=== PATIENT | female | born 1965 | race Caucasian/White ===

== ENCOUNTER → 2023-02-15 11:03 | Outpatient (CLI) | payer OTHER, SELFPAY ==
--- NOTE | ~2023-02-15 | MM_ITS ---
EXAMINATION: MM screening heike BI w florian HISTORY: Screening mammogram TECHNIQUE: Craniocaudal and mediolateral oblique 3-D tomosynthesis images were obtained and synthetic 2-D images were generated. CAD analysis was submitted and interpreted. COMPARISON: No prior mammogram is available for comparison at this institution. BREAST PARENCHYMAL COMPOSITION: There are scattered areas of fibroglandular density. FINDINGS: There is no evidence of suspicious mass, calcification, or architectural distortion to sugg est malignancy in either breast. There has been no suspicious interval change. IMPRESSION: 1. No mammographic evidence of malignancy. 2. Recommend routine screening mammography in one year. BI-RADS Category 1: Negative Reviewed, dictated and finalized at location A.
== END ==
DX: Z12.31 Encounter for screening mammogram for malignant neoplasm of breast (principal)
CPT/HCPCS: 77063; 77067

== ENCOUNTER 2024-07-31 10:46 | Outpatient (CLI) | payer OTHER, SELFPAY ==
--- NOTE | ~2024-07-31 | MM_ITS ---
EXAMINATION: MM screening heike BI w florian HISTORY: Screening mammogram, family history of breast cancer in her sister. TECHNIQUE: Craniocaudal and mediolateral oblique 3-D tomosynthesis images were obtained and synthetic 2-D images were generated. CAD analysis was submitted and interpreted. COMPARISON: 02/15/2023 BREAST PARENCHYMAL COMPOSITION:Not Dense. The breasts are almost entirely fatty FINDINGS: No suspicious mass, calcification, or architectural distortion are identified in either candace ast to suggest malignancy. There has been no suspicious interval change. IMPRESSION: No mammographic evidence of malignancy. Recommend routine screening mammography in one year. BI-RADS Category 1: Negative Reviewed, dictated and finalized at location M. [employer]
== END 2024-07-31 10:47 | disposition home or self-care (01) ==
LOC: MICIMG 10:50
PROVIDERS: PCP Internal Medicine; Visit Provider Internal Medicine
DX: Z12.31 Encounter for screening mammogram for malignant neoplasm of breast (principal)
CPT/HCPCS: 77063; 77067

== ENCOUNTER 2024-11-12 21:58 | Emergency (ER) | payer OTHER, SELFPAY ==
--- NOTE | ~2024-11-12 | XR_ITS ---
3 VIEWS LUMBAR SPINE Ordering provider: Chris Camilo MD History: . fall . Comparison: None. FINDINGS: VERTEBRAL BODIES: No visible fracture or subluxation. Degenerative changes of the spine. DISK SPACES: Degenerative disc disease at the level of L4-L5 and L5-S1. Multilevel facet joint disease. SOFT TISSUES: Normal. IMPRESSION: No acute osseous abnormality lumbar spine. Multilevel degenerative disc disease. Reviewed, dictated and finalized at location A.
--- NOTE | ~2024-11-12 | XR_ITS ---
3 VIEWS THORACIC SPINE Ordering provider: Chris Camilo History: . fall . Comparison: None. FINDINGS: VERTEBRAL BODIES: Normal height and alignment. No visible fracture or subluxation. Degenerative changes of the spine. DISK SPACES: Multilevel narrowing of the disc spaces in the midthoracic area. SOFT TISSUES: Normal. IMPRESSION: No acute osseous abnormality of the thoracic spine. Reviewed, dictated and finalized at location A.
--- NOTE | ~2024-11-12 | XR_ITS ---
XR hand LT min 3V Ordering provider: Chris Camilo MD History: . left thumb injury . Comparison: None. FINDINGS: BONES: No dislocation in the first metacarpophalangeal joint is noted. No definite fracture.. JOINT SPACES: Osteoarthritic changes of the first carpometacarpal joint. SOFT TISSUES: Unremarkable. IMPRESSION: Dislocation of the first carpometacarpal joint. Reviewed, dictated and finalized at location A.
--- NOTE | ~2024-11-12 | XR_ITS ---
EXAMINATION: XR hand LT min 3V DATE: 11/13/2024 05:47 INDICATION: Postreduction first metacarpophalangeal dislocation. TECHNIQUE: Posteroanterior, oblique and lateral views of the left hand were obtained. COMPARISON: None. FINDINGS: Successful reduction to normal alignment of the previously dorsally dislocated first metacarpophalang eal joint. No fracture identified. Severe osteoarthritis at the first carpometacarpal joint. Addition al mild polyarticular osteoarthritis at the distal radioulnar, triscaphe and first metacarpophalangea l and multiple predominantly distal interphalangeal joints. Fiberglas splinting along the radial aspe ct of the hand, wrist and distal forearm. IMPRESSION: 1. Reduction to normal alignment of the previously described first metacarpophalangeal joint. No frac ture. Reviewed, dictated and finalized at location A. IMPRESSION: 1. Reduction to normal alignment of the previously described first metacarpopha langeal joint. No fracture.
--- OUTSIDE RECORDS SUMMARY | 2024-11-12 22:00 | XMS_ITS | Data Portability ---
Author Organization [facility] [place] Address [address] [place] [address] Care Team Providers Care Corporate Quality Manager Name Role Phone DMITRY CARPENTER Primary Care Provider Assessment Encounter Date Assessment Date Assessment LastModified by Organization Details LastModified Time 04/29/2024 04/29/2024 Annual gynecological exam performed. Patient will come back in a year unless there are new symptoms. [email or web address] Not available 04/13/2024 11:31:07 Plan of Treatment Reminders Order Date Submit Date Provider Last Modified By Organization Details Last Modified Time Details Appointments None recorded. Lab pap, IG + HR HPV - HPV regardless but if HPV is positive need subtyping 16,18/45 2023 [facility] (Lab), [address], [place], [address], 4 08:29:00 Referral None recorded. Procedures None recorded. Surgeries None recorded. Imaging None recorded. Medication Orders clotrimazol e-betametha sone 1 %-0.05 % topical cream [facility]23 [facility]24 [id number] [address], [place], [place], [id number], 4 10:19:10 Patient TargetsNo targets recorded. Patient InstructionsNo instructions recorded. Reason for Referral None Reported. Results Created Date Observation Date Name Description Value Unit Range Abnormal Flag Note LastModifiedBy Organization Detail LastModifiedTime 04/29/2004/29/2024 IMAGE GUIDE D PAP AND HPV REGAR DLESS image guided Pap, HPV regardless of Pap result SEE RESULT S BELOW CASE REPOR T: Cytol ogy Gynec ologi ziyad Repor t Case: [id number] Autho kristen hawkins Provi colette: Pedro vu, Galilea , ANP, MAGICIAN HELPER Colle cted: 04/29 1115 Order ing Locat ion: [place] Patho log[facility] Recei zach: 04/30 0310 First Cathleene n: Andrew Packer am, CT Speci men: Yoan toney Pap - Image d, Cervi x STATE MENT OF ADEQU ACY: Satis facto ry for evalu ation Trans forma tion zone compo nent absen t ----- ----- ----- ----- ----- ----- ----- ----- ----- ----- ----- ----- ----- ----- ----- ----- ----- ---- FINAL DIAGN OSIS: Negat eladio for Intra epith elial Lesio ernesto or Demetrius coulter (NIL) . Elect sanjeev gurrola d by Andrew Packer am, CT on 2023 at 7:24 AM ----- ----- ----- ----- ----- ----- ----- ----- ----- ----- ----- ----- ----- ----- ----- ----- ----- ---- HPV RESUL TS: HPV mRNA E6/E7 : No HPV mRNA Detec billy NOTE: This high risk HPV mRNA assay detec ts fourt een high- risk HPV types (16, 18, 31, 33, 35, 39, 45, 51, 52, 56, 58, 59, 66, 68) witho ut diffe renti ation . COMME NT: This speci men was revie wed by a Cytot echno logis t and/o r Patho logis t (as indic ated in this repor t) after evalu ation using the Thinp rep Imagi ng Syste m. CLINI ZIYAD INFOR MATIO N: Menst rual Statu s: LMP (if appli cable ): Clini ziyad Histo ry/Pr eviou s Pap: Type of Neopl marciano (if appli cable ): Signi fican t Clini ziyad Findi ngs: Other Histo ry: Hormo padmini (if appli cable ): PAP EDUCA GRACIELA L NOTE: The Pap Test is a scree feng test with an inher ent false negat eladio rate. Liqui d-bas ed sampl ing may decre ase, but will not elimi rossy, false negat eladio resul ts. A negat eladio resul t does not precl ude the prese nce and/o r devel opmen t of disea se, since the prese nce of abnor mal cells in the sampl e depen ds on the locat ion of the lesio n and sampl ing techn ique. Jacques nued regul ar scree feng is the best metho d of cance r preve ntion . If repor billy cytol ogic findi ng do not corre late with physi ziyad and/o r histo rical findi ngs, furth er inves tigat ion is recom kimani d, as clini lissa joshua nted. Not Available [facility] (Lab) [address], [place], [address], 05/06/2024 08:29:00 Result Notes None recorded. Procedures Surgical History Date Name Laterality Status Provider Name and Address Organization Details Recorded Time 3 Date of Last Mammogram completed [facility] 04/29/2024 10:04:53 1 Date of Last Pap Smear completed [facility] 04/29/2024 10:04:53 4 completed [facility] 04/29/2024 10:04:53 4 Date of Last Colonoscopy completed [facility] 04/29/2024 10:04:53 4 Colonoscopy completed [facility] 04/29/2024 10:04:53 1 Caesarean Section completed [facility] 04/29/2024 10:04:53 Imaging Results None recorded. Procedure Notes None recorded. Medical Equipment None Reported. Allergies Allergen ID Allergen Name Allergen Category Reaction Reaction Severity Criticality Documentation Date Start Date Code Code System Note Provider Name and Address Organization Details Recorded Time 05151 aloe extract food,medi cation rash moderate Not available 04/29/2024 15614 RxNorm [facility] 10:04:53 Medications Name Sig Start Date Stop Date Status Note LastModified by Organization Details LastModified Time cyclobenzapr ine 10 mg tablet TAKE 1 TABLET BY MOUTH EVERY 8 HOURS NEEDED. CUT IN 1/2 IF TOO SEDATING active Not Available Not Available No t Available metoprolol tartrate 100 mg tablet active Not Available Not Available No t Available clotrimazole -betamethaso ne 1 %-0.05 % topical cream APPLY TOPICALLY TO THE AFFECTED AND SURROUNDING AREAS TWICE DAILY IN THE MORNING AND IN THE EVENING FOR 2 WEEKS active Not Available Not Available No t Available ibuprofen 600 mg tablet TAKE 1 TABLET BY MOUTH EVERY 6 HOURS WITH FOOD NEEDED active Not Available Not Available No t Available escitalopram 10 mg tablet active Not Available Not Available Not Available Vitals Date Recorded Body height Body mass index (BMI) Body weight Systolic blood pressure Diastolic blood pressure Provider Name and Address Organization Details Last Updated DateTime 04/29/2024 167.64 cm 34.7 kg/m2 66776.64 g 124 mm[Hg] 86 mm[Hg] [facility] 10:04:24 Social History Question Answer Notes LastModified by Organizat ion Details LastModified Time Do You Have An Advance Directive? Yes [email or web address] Information n ot available 04/29/2024 Are You Blind Or Do You Have Difficulty Seeing? No [email or web address] Information n ot available 04/29/2024 What Is Your Level Of Caffeine Consumption? Occasional [email or web address] Information not available 04/29/2024 How Much Tobacco Do You Chew? None [email or web address] Information not available 04/29/2024 In The 14 Days Before Symptom Onset, Have You Had Close Contact With A Laboratory-confirm ed COVID-19 While That Case Was Ill? No Information n ot available 04/29/2024 In The 14 Days Before Symptom Onset, Have You Had Close Contact With A Person Who Is Under Investigation For COVID-19 While That Person Was Ill? No [email or web address] Information not available 04/29/2024 Have You Been To An Area Known To Be High Risk For COVID-19? No Information not available 04/29/2024 Are You Deaf Or Do You Have Serious Difficulty Hearing? No [email or web address] Information not available 04/29/2024 What Type Of Diet Are You Following? REGULAR [email or web address] Information n ot available 04/29/2024 What Is The Highest Grade Or Level Of School You Have Completed Or The Highest Degree You Have Received? NH97131-0 [email or web address] Information not available 04/29/2024 Are There Any Guns Present In Your Home? No [email or web address] Information not available 04/29/2024 Do You Use Protection During Sex? No [email or web address] Information not available 04/29/2024 Do You Use Your Seat Belt Or Car Seat Routinely? Yes [email or web address] Information not available 04/29/2024 Do You Have Smoke And Carbon Monoxide Detectors In Your Home? Yes [email or web address] Information not available 04/29/2024 How Much Tobacco Do You Smoke? No [email or web address] Information not available 04/29/2024 Do You Use Sunscreen Routinely? No Information not available 04/29/2024 Have You Used IV Drugs? No [email or web address] Information not available 04/29/2024 Do You Have Difficulty Walking Or Climbing Stairs? No [email or web address] Information not available 04/29/2024 Sex: Unknown Functional Status Question Answer Note LastModified by Organizat ion Details LastModified Time Do you use any illicit or recreational drugs? No [email or web address] Information not available 04/29/2024 What is your level of alcohol consumption? Occasional [email or web address] Information not available 04/29/2024 Are you able to walk? YESWOREST [email or web address] Information not available 04/29/2024 Are you able to care for yourself? 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 No [email or web address] Information not available 04/29/2024 What is your exercise level? Occasional [email or web address] Information not available 04/29/2024 Mental Status Question Answer Note LastModified by Organization D etails LastModified Time Do you feel stressed (tense, restless, nervous, or anxious, or unable to sleep at night)? [id number] [email or web address] Information not available 04/29/2024 Family History Relationship Description Onset Age of this Age Resolved Age Notes LastModified by Organization Details LastModified Time Sister Malignant tumor of breast Not available 2023 10:04:53 Sister Non-Hodgkin' s lymphoma (clinical) [email or web address] Not available 04/29 10:07:23 Son Leukemia [email or web address] Not availabl e 04/29/2024 10:07:11 Medical History Condition Response Drug/Latex Allergies/Reactions Y Arthritis Y Hypertension Y Gynecological History Statement/Question Response Abnormal Pap N Date of Last Mammogram 02/15/2023 On BCP's at Conception? N N Was last menstrual period normal N STIs/STDs N HPV Vaccine N Age at First Child 36 If Post Menopausal, Age at Menopause 47 Date of Last Colonoscopy 01/28/2014 Sexually Active? N Age of first menstrual cycle 12 Date of Last Pap Smear 07/21/2020 Sexual Problems? Y LMP Unknown 01/28/2014 N Obstetrics History GPAL:G 1 P 1 0 0 1 Type Value Full Term 1 Living 1 Total 1 Past Encounters Encounter ID Performer Location Encounter Start Date Encounter Closed Date Diagnosis/Indication Diagnosis SNOMED-CT Code Diagnosis ICD10 Code Diagnosis Note [id number] Dajuan Marshall MD [place] [address] [address] 04/29/2024 09:54:49 04/29/2024 10:45:56 Gynecologic examination 71768633 Z01.419 Annual gynecologi ziyad exam performed. Patient will come back in a year unless there are new symptoms. Suggest Calcium with Vitamin D if not eating in diet. Patient advised to get annual flu shot. Recommend yearly physicals and perform monthly breast exams. Genetic testing is available for patients with family history of cancer. Engage in safe sexual practices, use condoms. Encouraged to have daily exercise. Avoid tobacco and illicit drugs, moderation of alcohol. If BMI greater than 25 dietary consult advised. If you have any questions please call or email. mammogram- pt has scheduled at [facility] in Jul 2024 colon cancer screening - DUE - PCP orders DEXA scan- n/a Pap smear- pap w/ HPV collected laboratory evaluation - PCP STI testing - declined Candidiasis of skin 4988 3006 B37.2 Pt requests refill of antifungal cream for intermitte nt yeast infection/ irritation of inner thigh/groi n.Rx sent with 1 refill.Rec ommended wearing cotton underwear, changing out of any moist clothing immediatel y. Dyspareunia [id number] N94 .10 Recommende d coconut or olive oil for lubricatio n during intercours e.Discusse d vaginal estrogen cream to help improve vaginal dryness/at rophy. Risks/bene fits reviewed. Pt to consider, but declined at this time. Health Concerns Section Related Observation LastModified by Organization Detai ls LastModified Time None Recorded Concern Status LastModified by Organization Details LastModified Time None Recorded Advance Directives Directive Y: Payers Encounter Date Sequence Insurance Name Policy Number Policy Lu Covered Member ID Lu Member ID Guarantor Name 04/29/2024 1 [facility] [id number] Peri Gamez [id number] Peri Gamez Notes Date Note Type Note Provider Name and Address Organization Details Recorded Time 04/29/2024 text/html Annual GYNReport ed bypatient.Urinary symptoms:No hematuria; No incontinence Vulva:No genital lesion Vagina:Normal vaginal discharge Breast:No breast pain; No breast lump; No nipple discharge Sexual complaints:No sexual complaints; Normal libido;Pain during intercourse Menopausal Symptoms:No menopausal symptoms;Inadequac y of lubrication of vaginal mucosa Psychological symptoms:No depression; No anxiety; No PMDD Preventive measures:Encourage self breast examination; Encourage regular exercise; Encourage no tobacco use; Encourage regular mammograms starting age 40; Needs to schedule mammogram; Needs to schedule colonoscopy New patient presents to establish care.Post-menopaus al. Patient reports dyspareunia d/t dryness.Patient's sister had hx of breast cancer, pt reports that she is BRCA negative. GALILEA MCKINNON, MERCHANDISE SHOPPER [address], [place], [address], [place] [facility] 04/29/2024 11:31:27 OBGyn Episode Ob Episode Information Episode Created Date Number of Fetuses Patient Bloodtype Patient rh Status Prepregnancy Weight lbs Domestic Partner Domestic Partner Phone Father Name Transferrer Status 04/29/20 24 1 CLOSED Fetus Data First Name Last Name Admitted to NICU Weight (g) Sex Living Outcome Pediatric Complications Fetus ID Race Codes Race Delivery Type 4223.84 [id number] M Full Term [id number] Ron Calculation Initial Ron Date Initial Exam Date Initial Exam Provider Initial Ultrasound Date Last Menstrual Period Date Ultra Sound Weeks Gestation 0 Eighteen To Twenty Week Ron Update Ultra Sound Date Fundal Height At Umbil Quickening Date Ultra Sound Latest Weeks Gestation Final Ron Confirmed By Final Ron Confirmed Date Final Ron Date Ultra Sound Latest Days Gestation 0 0 Menstrual History Last Menstrual Date Menses Monthly On Bcp Conception Prior Menses Frequency Hcg Plus Date Menarche Onset Age Delivery Information Delivery Date Delivery Type Labor Anesthesia Weeks Gestation Incision Type Labor Labor Length Hrs Delivered By Post Complications Tubal Sterilization Discharge Date Comments 2 Discharge Information Feeding Method Contraceptive Method Maternal HG B and HCT Levels
--- OUTSIDE RECORDS SUMMARY | 2024-11-12 22:00 | XMS_ITS | Referral Summary ---
Author Organization [facility] Address [address] [place] [phone] Care Team Providers Care Pack Worker Supervisor Name Role Phone Westley Ramirez MD Primary Care Provider + Encounters Date Type Department Care Team Description 08/27/2024 10:26 AM PHYSICIAN RELATIONS REPRESENTATIVE Anesthesia Event [facility] [address] [place] [phone] Todd Rivera DO 08/27/2024 10:30 AM PHYSICIAN RELATIONS REPRESENTATIVE - 08/27/2024 11:00 AM PHYSICIAN RELATIONS REPRESENTATIVE Surgery [facility] [address] [place] [phone] Troy Beauchamp MD COLON REMOVAL SNARE 08/27/2024 9:43 AM PHYSICIAN RELATIONS REPRESENTATIVE - 08/27/2024 11:27 AM PHYSICIAN RELATIONS REPRESENTATIVE Hospital Encounter [facility] [address] [place] [phone] Troy Beauchamp MD Screen for colon cancer Discharge Disposition: Discharge to home or self care from Last 3 Months Allergies Active Allergy Reactions Criticality Noted Date Comments Aloe Vera Itching,Rash Medium 07/21/2020 Aloe Vera-Dimethicone Hives Medium 01/27/2020 Ampicillin Hives High 05/07/2015 Codeine Dizziness Low 01/16/2017 Penicillins Hives Medium 01/16/2017 Medications ibuprofen 200 mg tab/cap Take 4 tablet/capsule (800 mg total) by mouth every 6 (six) hours as needed for pain Active semaglutide (WEGOVY) 0.25 mg/0.5 mL auto-injector Inject 0.5 mL (0.25 mg total) under the skin every 7 days 2 mL 4 Active Additional Information Patient not taking.Reported on 08/27/2024 metoprolol (LOPRESSOR) 100 mg tablet TAKE 1 TABLET BY MOUTH DAILY 100 tablet 1 5 Active escitalopram (LEXAPRO) 10 mg tablet TAKE 1 TABLET BY MOUTH DAILY 100 tablet 1 5 Active scopolamine 1 mg over 3 days patch [address] 1 patch on the skin every third day as needed (nausea) 2 patch 5 10/25/19 25 Active Problems Problem Noted Date Diagnosed Date Moderate episode of recurrent major depressive d isorder 05/14/2024 Screen for colon cancer 05/14/2024 Anxiety 04/20/2018 Family history of breast cancer in sister 2015 History of recurrent UTI (urinary tract infectio n) 02/01/2013 Overview (01/21/2017): Overview: No significant cystocoele Essential hypertension, benign 10/01/2010 Anovulatory 04/03/2009 Depression 11/29/2008 Overview (01/21/2017): Overview: Son 2006 at age 5 of leukemia Resolved Problems Problem Noted Date Diagnosed Date Resolved Date BMI 33.0-33.9,adult 09/10/2018 05/14/20 24 Body mass index (BMI) of 32. 0 to 32.9 in adult 02/27/2017 05/14/2024 Obesity 11/29/2008 05/14/2024 Immunizations Immunization Administration Dates Next Due Influenza, Unspecified 07/18/2022(Deferr ed: Patient Refused),04/30/2020,03/30/2018(Deferred : Patient decision) Pfizer SARS-CoV-2 Monovalent Vaccination (12+ Yrs) PURPLE 10/14/2020,09/23/2020 Tdap 05/14/2024,01/03/2014 Social History Tobacco Use Types Packs/Day Years Used Date Smoking Tobacco: Never Smokeless Tobacco: Never Tobacco Cessation:Counseling Given: Not Answered Alcohol Use Standard Drinks/Week Comments Yes 0 (1 standard drink = 0.6 oz pur e alcohol) occassionally AUDIT-C Answer Date Recorded Q1: How often do you have a drink containing alc ohol? 2-4 times a month 08/27/2024 Q2: How many drinks containi ng alcohol do you have on a typical day when you are drinking? 1 or 2 08/27/2024 Q3: How often do you have si x or more drinks on one occasion? Never 08/27/2024 PHQ-2 Answer Date Recorded PHQ-2 Total Score 0 05/14/2024 Personal Safety Answer Date Recorded Have you ever been in or are you currently in a harmful physical or emotional relationship or is someone making you feel afraid or unsafe? 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 Not on file Not on file Not on file Last Filed Vital Signs Vital Sign Reading Time Taken Comments Blood Pressure 126/81 08/27/2024 11:21 AM PHYSICIAN RELATIONS REPRESENTATIVE Pulse 57 08/27/2024 11:21 AM PHYSICIAN RELATIONS REPRESENTATIVE Temperature 37 C (98.6 F) 08/27/2024 10:09 AM PHYSICIAN RELATIONS REPRESENTATIVE Respiratory Rate 15 08/27/2024 11:21 AM PHYSICIAN RELATIONS REPRESENTATIVE Oxygen Saturation 100% 08/27/2024 11:21 AM PHYSICIAN RELATIONS REPRESENTATIVE Inhaled Oxygen Concentration - - Weight 99.3 kg (219 lb) 08/27/2024 10:09 AM PHYSICIAN RELATIONS REPRESENTATIVE Height 166 cm (5' 5.35 ) 08/27/2024 10:09 AM PHYSICIAN RELATIONS REPRESENTATIVE Body Mass Index 36.05 08/27/2024 10:09 AM PHYSICIAN RELATIONS REPRESENTATIVE Plan of Treatment Not on file Procedures Procedure Name Priority Date/Time Associated Diagnosis Comments SURGICAL PATHOLOGY Routine 08/27/2024 10 :37 AM PHYSICIAN RELATIONS REPRESENTATIVE Screen for colon cancer COLON REMOVAL SNARE Open Access 08/27/2024 1 0:26 AM PHYSICIAN RELATIONS REPRESENTATIVE Screen for colon cancer COLONOSCOPY 08/27/2024 9:36 AM PHYSICIAN RELATIONS REPRESENTATIVE SCREENING MAMMOGRAM 2D BILATERAL Schedule Routine, Read Routine (OP Routine) 08/02/2024 7:31 AM PHYSICIAN RELATIONS REPRESENTATIVE HEPATITIS C ANTIBODY Routine 09/10/2018 3:13 PM CDT Encounter for hepatitis C screening test for low risk patient from Last 3 Months or Most Recently Relevant to Health Maintenance Results * Surgical pathology (08/27/2024 10:37 AM PHYSICIAN RELATIONS REPRESENTATIVE) Tissue specimen (specimen) (Polyp(s), colon/colorectal, esophageal, gastric) 08/27/2024 10:37 AM PHYSICIAN RELATIONS REPRESENTATIVE Tissue specimen (specimen) (Polyp(s), colon/colorectal, esophageal, gastric) 08/27/2024 10:46 AM PHYSICIAN RELATIONS REPRESENTATIVE Narrative PATHOLOGY [facility] - 08/30/2024 9:21 AM PHYSICIAN RELATIONS REPRESENTATIVE [address] [address] Tele: Shannan Copeland MD - Clinical Project Assistant Note to Patients: This report may contain a detailed description of human tissue sent by a health care provider to the laboratory for pathologic evaluation. The content of this report is essential for diagnosis and may provide important critical findings. This information may be unfamiliar to patients to review without a medical professional present. It is advised that the patient review this report in the presence of a health care provider who can answer questions and explain the details. SURGICAL PATHOLOGY REPORT Patient Name: RUSS MAHARAJ Address: [address] [place] [address] Gender: F : 1965 (Age: 59) Service: Gastro Location: [facility], Hospital #: [id number] Patient Type: [facility] Taken: 08/27/2024 Received 08/27/2024 Reported: 08/30/2024 Physician(s): Sandra Lopez M.D. DIAGNOSIS: Colon, transverse, polypectomy: - Tubular adenoma; negative for high-grade dysplasia or malignancy Colon, sigmoid, polypectomy: - Tubular adenoma; negative for high-grade dysplasia or malignancy [facility]/08/30/2024 09:21 Examining Pathologist: Oleg Stokes M.D. Report Reviewed and Electronically Signed By Oleg Stokes M.D. SPECIMEN TYPE: A: TRANSVERSE POLYP B: SIGMOID POLYP CLINICAL IMPRESSION AND HISTORY: Screening for colorectal malignant neoplasm. Last colonoscopy 2013. Last colonoscopy date unknown. Findings include 6 mm polyp in the sigmoid colon, 7 mm polyp in transverse colon. GROSS DESCRIPTION: The tissue is received in two containers of formalin all labeled with the patient's name RUSS MAHARAJ. A. The first container is additionally labeled transverse polyp and contains multiple tissue fragments measuring 1.1 x 0.3 x 0.1 cm in aggregate. Due to the color and size of the specimen, eosin is used. The specimen is filtered and submitted entirely in cassette A1. B. The second container is additionally labeled sigmoid polyp and contains a 1 x 0.3 x 0.1 cm tissue fragment admixed with debris. Due to the color and size of the specimen, eosin is used. The specimen is filtered and submitted entirely in cassette B1. [facility]/08/27/2024 16:39 [facility] MICROSCOPIC DESCRIPTION: Sections of the transverse polyp are multiple polypoid mucosal fragments with patchy tubular adenoma features without high-grade dysplasia or malignancy. Sections from the sigmoid polyp show polypoid mucosa with tubular adenoma features, without high-grade dysplasia or evidence of malignancy. Clerical Data Follows A; 26123 B; [id number] REPORT IMAGES AND/OR SCANNED DOCUMENTS ONLY VIEWABLE IN PDF FORMAT The immunohistochemical test(s) cited in this report, if any, was developed and its performance characteristics determined by [facility]. It has not been cleared or approved by the U.S. Food and Drug Administration. The FDA has determined that such clearance or approval is not necessary. This test is used for clinical purposes. It should not be regarded as investigational or for research. [facility] is certified under the Clinical Laboratory Improvement Amendments of 1988 (CLIA) as qualified to perform high complexity testing. Immunostains were performed on formalin-fixed paraffin embedded tissue using a polymer diaminobenzidine chromogen detection system. Antibodies used may include clone SP1 (rabbit monoclonal, estrogen receptor), clone 1E2 (rabbit monoclonal progesterone receptor), Ki-67 (rabbit monoclonal, 30-9), CD117 (rabbit polyclonal, c-kit), and anti-Her-2/luiza (4B5) (rabbit monoclonal primary antibody). In the event that immunohistochemistry or special stains have been performed, attending physician has confirmed appropriateness of controls. Frozen section, operating room consultation, gross examination and dissection, and case sign out may have been performed in part or completely in the following laboratories: [facility], [address] [facility], [place], [place] [address] [place] [address], [address] [place] [id number]. us Troy Beauchamp MD LAB PATHOLOGY ORDERABLES Ginger higgins Result PATHOLOGY [facility] Laboratory Receiving [address] [place] [address] * Colonoscopy (08/27/2024 9:36 AM PHYSICIAN RELATIONS REPRESENTATIVE) Anatomical Region Laterality Modality Other Narrative Procedure Note Troy Beauchamp MD - 08/27/2024 9:36 AM CST ENDOSCOPY LAB Patient Name: Russ Maharaj Procedure Date: 08/27/2024 9:36 AM Admit Type: Outpatient Room: [facility] 3 Date of : 1965 Instrument Name: [id number] Gender: Female Note Status: Finalized Procedure: Colonoscopy Indications: Screening for colorectal malignant neoplasm, Last colonoscopy: 2013, Last colonoscopy: date unknown (unable to locate last colonoscopy report) Providers: Troy Beauchamp M.D. Referring MD: Westley Ramirez M.D. Medicines: Propofol per Anesthesia Complications: No immediate complications. Estimated blood loss:None. Estimated Blood Loss: Estimated blood loss: none. Procedure: Pre-Anesthesia Assessment: - The risks and benefits of the procedure and the sedation options and risks were discussed with the patient. All questions were answered and informed consent was obtained. The benefits, risks and alternatives of theprocedure and sedation were discussed and informed consentwas obtained. All questions were answered. Please referto the signed informed consent document in the medical record. The scope was passed under direct vision.The Colonoscope was introduced through the anus and advanced to the the cecum, identified byappendiceal orifice and ileocecal valve. The colonoscopy was performed without difficulty. The patient tolerated the procedure well. The quality of the bowel preparation was evaluated using the BBPS (BostonBowel Preparation Scale) with scores of: Right Colon = 3 (entire mucosa seen well with no residual staining, small fragments of stool or opaque liquid),Transverse Colon = 3 (entire mucosa seen well with no residual staining, small fragments of stool or opaqueliquid) and Left Colon = 3 (entire mucosa seen well with no residual staining, small fragments of stool oropaque liquid). The total BBPS score equals 9. The qualityof the bowel preparation was excellent. The bowel preparation used was Plenvu via split dose instruction. Bowel prep was administered using asplit dose. AI Technology was utilized during theprocedure to aid in polyp detection. Findings: A 6 mm polyp was found in the sigmoid colon. The polyp was sessile.The polyp was removed with a cold snare. Resection and retrieval were complete. Estimated blood loss: none. A 7 mm polyp was found in the transverse colon. The polyp wassessile. The polyp was removed with a cold snare. Resection and retrieval were complete. Estimated blood loss: none. The retroflexed view of the distal rectum and anal verge was normaland showed no anal or rectal abnormalities. Impression: - One 6 mm polyp in the sigmoid colon, removed witha cold snare. Resected and retrieved. - One 7 mm polyp in the transverse colon, removedwith a cold snare. Resected and retrieved. Recommendation: - Await pathology results. - Repeat colonoscopy in 5 years for surveillance of multiple adenomas. Electronically Signed by Troy Beauchamp M.D. Troy Beauchamp M.D. 08/27/2024 10:49:53 AM Number of Addenda: 0 Note Initiated On: 08/27/2024 9:36 AM Scope Withdrawal Time: 0 hours 7 minutes 24 seconds Scope In: 10:33:36 AM Scope Out: 10:48:42 AM Troy Beauchamp MD ENDOSCOPY PROCEDURES Final Re sult * Screening Mammogram 2D Bilateral (08/02/2024 7:31 AM PHYSICIAN RELATIONS REPRESENTATIVE) SCRIBED BI-RADS 1 Anatomical Region Laterality Modality Breast Bilateral Mammography Historical Provider IMG MAMMO PROCEDURES Ginger l Result * Hepatitis C antibody (09/10/2018 3:13 PM CDT) Hep C Ab Non-Reactiv e Non-Reactiv e [facility] Blood specimen (specimen) 09/10/2018 3:13 PM CDT 09/10/2018 5:49 PM CDT Narrative [facility] - 09/10/2018 7:16 PM CDT Westley Ramirez MD LAB MICROBIOLOGY - GENER AL ORDERABLES Final Result [facility] [address] [place] [address] from Last 3 Months or Most Recently Relevant to Health Maintenance Insurance [facility] CHOICE PLUS Advance Directives For more information, please contact: [phone] * Full Code (Latest Code Status on File) Date Activated Date Inactivated Comments 08/27/2024 9:58 AM 08/27/2024 3:37 PM Care Teams Pack Worker Supervisor Relationship Specialty Start Date End Date Westley Ramirez MD [address] [address] PCP - General 11/14/16
--- OUTSIDE RECORDS SUMMARY | 2024-11-12 22:00 | XMS_ITS | Clinical Summary ---
Author Organization [facility] Address [address] [place] [address] Care Team Providers Care Delphi Developer Name Role Phone Westley Ramirez MD Primary Care Provider + Allergies Active Allergy Reactions Criticality Noted Date [...] as needed (nausea) 2 patch 5 10/25/19 Active Problems Problem Noted Date Diagnosed Date [...] in adult 02/27/2017 05/14/2024 Obesity 11/29/2008 05/14/2024 Encounters Date Type Department Care Team Description 08/27/2024 10:30 AM ECLECTIC DOCTOR - 08/27/2024 11:00 AM ECLECTIC DOCTOR Surgery [facility] [address] [place] [phone] Troy Beauchamp MD COLON REMOVAL SNARE 08/27/2024 10:26 AM ECLECTIC DOCTOR Anesthesia Event [facility] [address] [place] [phone] Todd Rivera DO 08/27/2024 9:43 AM ECLECTIC DOCTOR - 08/27/2024 11:27 AM ECLECTIC DOCTOR Hospital Encounter [facility] [address] [place] [phone] Troy Beauchamp MD Screen for colon cancer Discharge Disposition: Discharge to home or self care from Last 3 Months Immunizations Immunization Administration Dates Next Due Influenza, Unspecified 07/18/2022(Deferr ed: Patient Refused),04/30/2020,03/30/2018(Deferred : Patient decision) Pfizer SARS-CoV-2 Monovalent Vaccination (12+ Yrs) PURPLE 10/14/2020,09/23/2020 Tdap 05/14/2024,01/03/2014 Surgical History Surgery Date Site/Laterality Comments KNEE ARTHROSCOPY Left CYST REMOVAL 06/30/2021 - 06/29/2022 on neck Medical History Medical History Date Comments Depression Depression Hypertension Hypertension Anxiety Family History Medical History Relation Name Comments Cardiomyopathy Brother Diabetes type II Father Hypertension Father Hypertension; Diabetes type II Mother Diabetes me llitus type 2; Hypertension Mother Hypertension; Arthritis Other Blood Clot Other Breast cancer Sister Cancer, breast ; Lymphoma Sister Relation Name Status Comments Brother Alive Father Mother Other Sister Alive Social History Tobacco Use Types Packs/Day Years [...] Sex Assigned at Female 09/03/2018 4:39 PM ECLECTIC DOCTOR Legal Sex Female 4:02 AM ECLECTIC DOCTOR Gender Identity Female 09/03/2018 4:39 PM ECLECTIC DOCTOR Sexual Orientation Straight 09/03/2018 4: 39 PM ECLECTIC DOCTOR 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 Not on file Not on file Obstetrics History Last Filed Vital Signs Vital Sign Reading Time Taken Comments Blood Pressure 126/81 08/27/2024 11:21 AM ECLECTIC DOCTOR Pulse 57 08/27/2024 11:21 AM ECLECTIC DOCTOR Temperature 37 C (98.6 F) 08/27/2024 10:09 AM ECLECTIC DOCTOR Respiratory Rate 15 08/27/2024 11:21 AM ECLECTIC DOCTOR Oxygen Saturation 100% 08/27/2024 11:21 AM ECLECTIC DOCTOR Inhaled Oxygen Concentration - - Weight 99.3 kg (219 lb) 08/27/2024 10:09 AM ECLECTIC DOCTOR Height 166 cm (5' 5.35 ) 08/27/2024 10:09 AM ECLECTIC DOCTOR Body Mass Index 36.05 08/27/2024 10:09 AM ECLECTIC DOCTOR Plan of Treatment Health Maintenance Due Date Last Done Comments Cervical Cancer Screening 1965 Covid-19 Vaccine ( season) 2024 05/12/2021, 10/14/2020, 09/23/2020 Zoster Vaccine (2 of 2) 10/02/2024 08/07/2024 Depression Screening 05/14/2025 05/14/2024, 07/18/2022, 01/27/2020, Additional history exists Regular Well Visit/Exam 18-64 05/14/2025 05/14/2024, 07/18/2022, 01/27/2020, Additional history exists Breast Cancer Screening-Mammogram 08/02/2025 08/02/2024, 02/15/2023, 02/15/2023, Additional history exists DTaP/Tdap/Td Vaccine (3 - Td or Tdap) 05/14/2034 05/14/2024, 01/03/2014 Colon Cancer Screening-Colonoscopy 08/27/2034 08/27/2024, 01/28/2014 Hepatitis C Screening Completed 09/10/2018 Influenza Vaccine Discontinued 04/30/2020 Hepatitis B Screening Completed 05/14/2024 Colon Cancer Screening-CT Colonography Discontinued 08/27/2024, 01/28/2014 Colon Cancer Screening-DNA Stool Discontinued 08/27/2024, 01/28/2014 Colon Cancer Screening-FIT Discontinued 08/27/2024, Colon Cancer Screening-Sigmoidoscopy Discontinued 08/27/2024, 01/28/2014 Pneumococcal vaccine <65 Aged Out No longer eligible based on patient's age to complete this topic Procedures Procedure Name Priority Date/Time Associated Diagnosis Comments SURGICAL PATHOLOGY Routine 08/27/2024 10 :37 AM ECLECTIC DOCTOR Screen for colon cancer COLON REMOVAL SNARE Open Access 08/27/2024 1 0:26 AM ECLECTIC DOCTOR Screen for colon cancer COLONOSCOPY 08/27/2024 9:36 AM ECLECTIC DOCTOR SCREENING MAMMOGRAM 2D BILATERAL Schedule Routine, Read Routine (OP Routine) 08/02/2024 7:31 AM ECLECTIC DOCTOR HEPATITIS C ANTIBODY Routine 09/10/2018 3:13 PM CDT Encounter for hepatitis C screening test for low risk patient from Last 3 Months or Most Recently Relevant to Health Maintenance Results * Surgical pathology (08/27/2024 10:37 AM ECLECTIC DOCTOR) Tissue specimen (specimen) (Polyp(s), colon/colorectal, esophageal, gastric) 08/27/2024 10:37 AM ECLECTIC DOCTOR Tissue specimen (specimen) (Polyp(s), colon/colorectal, esophageal, gastric) 08/27/2024 10:46 AM ECLECTIC DOCTOR Narrative PATHOLOGY [facility] - 08/30/2024 9:21 AM ECLECTIC DOCTOR [address] [address] Tele: Shannan Copeland MD - Meat Wrapper Note to Patients: This report may contain [...] PATHOLOGY REPORT Patient Name: RUSS MAHARAJ Address: [address] [place] [address] Gender: F : 1965 (Age: 59) Service: Gastro Location: [facility], Hospital #: [id number] Patient Type: [facility] [place] [facility] Taken: 08/27/2024 Received 08/27/2024 Reported: 08/30/2024 Physician(s): Sandra Lopez M.D. DIAGNOSIS: Colon, transverse, polypectomy: - Tubular adenoma; negative for high-grade dysplasia or malignancy Colon, sigmoid, polypectomy: - Tubular adenoma; negative for high-grade dysplasia or malignancy 08/30/2024 09:21 Examining Pathologist: Oleg Stokes M.D. Report [...] filtered and submitted entirely in cassette B1. [facility]/08/27/2024 16:39 [facility] MICROSCOPIC DESCRIPTION: Sections of the transverse polyp are multiple polypoid mucosal fragments with patchy tubular adenoma features without high-grade dysplasia or malignancy. Sections from the sigmoid polyp show polypoid mucosa with tubular adenoma features, without high-grade dysplasia or evidence of malignancy. Clerical Data Follows A; 24500 B; [id number] REPORT IMAGES AND/OR SCANNED DOCUMENTS ONLY VIEWABLE IN PDF FORMAT The immunohistochemical test(s) cited in this report, if any, was developed and its performance characteristics determined by [facility]. It has not been cleared or approved by the U.S. Food and Drug Administration. The FDA has determined that such clearance or approval is not necessary. This test is used for clinical purposes. It should not be regarded as investigational or for research. [facility] is certified under the Clinical Laboratory [...] part or completely in the following laboratories: [facility], [facility][note 3]5 [facility], [place], [place] [address] [place] [address], 10 [facility], [place] [address]. us Troy Beauchamp MD LAB PATHOLOGY ORDERABLES Ginger higgins Result PATHOLOGY [facility] Laboratory Receiving [address] [place] [address] * Colonoscopy (08/27/2024 9:36 AM ECLECTIC DOCTOR) Anatomical Region Laterality Modality Other Narrative Procedure Note Troy Beauchamp MD - 08/27/2024 9:36 AM CST ENDOSCOPY LAB Patient Name: Russ Maharaj Procedure Date: 08/27/2024 9:36 AM Admit Type: Outpatient Room: [facility] Date of : 1965 Instrument Name: [id number] [...] Screening Mammogram 2D Bilateral (08/02/2024 7:31 AM ECLECTIC DOCTOR) SCRIBED BI-RADS 1 Anatomical Region Laterality Modality Breast Bilateral Mammography Historical Provider IMG MAMMO PROCEDURES Ginger l Result * Hepatitis C antibody (09/10/2018 3:13 PM CDT) Hep C Ab Non-Reactiv e Non-Reactiv e [facility] Blood specimen (specimen) 09/10/2018 3:13 PM CDT 09/10/2018 5:49 PM CDT Narrative [facility] - 09/10/2018 7:16 PM CDT Westley Ramirez MD LAB MICROBIOLOGY - GENER AL ORDERABLES Final Result [facility] [address] Department of [place] [address] from Last 3 Months or Most Recently Relevant to Health Maintenance Insurance [facility] CHOICE PLUS Advance Directives For more information, please contact: [phone] * Full Code (Latest Code Status on File) Date Activated Date Inactivated Comments 08/27/2024 9:58 AM 08/27/2024 3:37 PM Care Teams Delphi Developer Relationship Specialty Start Date End Date Westley Ramirez MD [address] [address] PCP - General 11/14/16
--- OUTSIDE RECORDS SUMMARY | 2024-11-12 22:00 | XMS_ITS | Clinical Summary ---
Author Organization [facility] Address [address] [place] [address] Care Team Providers Care Rn Radiology Name Role Phone Westley Ramirez MD Primary Care Provider [phone] Ashlie Boyle MD Unavailable [phone] Source Comments [facility],non-owned Affiliates and Associated Physician Practices is amultiple site organization consisting of ambulatory clinics and hospital sitesin [place], [place], [place] and [place]. This disclosure is being madepursuant to the Care Everywhere program and may not contain all information available regarding this patient. Last updated 18.[facility] Allergies Active Allergy Reactions Criticality Noted Date Comments Aloe Vera Itching,Rash Medium 07/21/2020 Ampicillin 11/29/2008 Rash Codeine 11/29/2008 dizzy Penicillins Unknown 04/23/2017 Medications * Be aware that medications may not be up to date on this document. Alwaysverify current medications with the patient. metoprolol tartrate (LOPRESSOR) 100 MG tabletIndication s:Hypertension Take 50 mg by mouth 2 times daily Reasons: High Blood Pressure Active Phenylephrine HCl (WAL-PHED PE PO) Take 1 Cap by mouth once daily Active Aspirin-Acetamin ophen-Caffeine (EXCEDRIN PO) Take 1 Cap by mouth once daily Active omeprazole (PRILOSEC) 40 MG capsuleIndicatio ns:Gastroesophag eal reflux disease without esophagitis TAKE 1 CAPSULE BY MOUTH TWICE DAILY BEFORE BREAKFAST AND SUPPER 60 capsule 8 Active escitalopram (LEXAPRO) 10 MG tablet 9 Active Multiple Vitamins-Mineral s (ICAPS AREDS 2 PO) Active clotrimazole-bet amethasone (Lotrisone) 1-0.05 % cream Apply to affected area 2 times daily 15 g 3 Active Active Problems Problem Noted Date Diagnosed Date Breast cancer screening, high risk patient 09/08 Overview (09/09/2018): Has seen Dr. Robbins. Lifetime risk = 39.5% Dense breast tissue on mammogram 09/08/2018 Family history of breast cancer in sister 2015 History of recurrent UTI (urinary tract infectio n) 02/01/2013 Overview (02/01/2013): No significant cystocoele Essential hypertension, benign 10/01/2010 Depression 11/29/2008 Overview (03/21/2009): Son 2006 at age 5 of leukemia Obesity (BMI: 31.28) 11/29/2008 Resolved Problems Problem Noted Date Diagnosed Date Resolved Date Anovulatory 04/03/2009 10/02/2022 Encounter for health-related screening 11/29/2008 10/02/2022 Overview (09/27/2017): Last PAP 02/01/13: normal Last MAMM 01/23/13: normal IMO update 09 28 2017 Immunizations Immunization Administration Dates Next Due INFLUENZA VACCINE 04/30/2020 TDAP (7yrs+) 01/03/2014 Family History Medical History Relation Name Comments Hypertension Father Cancer - Breast Maternal Grandmother Diabetes Mother Hypertension Mother Cancer - Breast Sister bilat, BRCA negative, recurrent at 61 Lymphoma Sister Leukemia Son Osteoporosis Neg Hx Relation Name Status Comments Brother Alive Father Maternal Grandmother Mother Sister Alive Son Leukemia Social History Tobacco Use Types Packs/Day Years Used Date Smoking Tobacco: Never Smokeless Tobacco: Never Alcohol Use Standard Drinks/Week Comments Yes 0 (1 standard drink = 0.6 oz pur e alcohol) AUDIT-C Answer Date Recorded Q1: How often do you have a drink containing alc ohol? 2-3 times a week 07/21/2020 Q2: How many drinks containi ng alcohol do you have on a typical day when you are drinking? 1 or 2 07/21/2020 Q3: How often do you have si x or more drinks on one occasion? 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 Not on file Not on file Not on file Last Filed Vital Signs Vital Sign Reading Time Taken Comments Blood Pressure 114/80 10/02/2022 11:43 AM CDT Pulse 66 02/07/2017 2:42 PM CDT Temperature 36.8 C (98.2 F) 02/07/2017 2:26 PM CDT Respiratory Rate 16 02/07/2017 2:42 PM CDT Oxygen Saturation 97% 02/07/2017 2:42 PM CDT Inhaled Oxygen Concentration - - Weight 95.3 kg (210 lb) 10/02/2022 11:43 AM CDT Height 167.6 cm (5' 6 ) 10/02/2022 11:43 AM CDT Body Mass Index 33.89 10/02/2022 11:43 AM CDT Plan of Treatment Health Maintenance Due Date Last Done Comments COLOGUARD (AGES 45-75) - COLON CA SCREENING 1965 CT COLONOGRAPHY - COLON CA SCREENING 1965 FIT - COLON CA SCREENING 1965 FLEX SIG - COLON CA SCREENING 1965 HIV SCREENING 1978 HEPATITIS C SCREENING 04/30/1981 PNEUMOCOCCAL VACCINE 50+ (1 of 1 - PCV) 2013 ZOSTER VACCINE (1 of 2) 2013 SCREENING FOR DIABETES 10/02/2022 01/03/2014, 2011 DTAP/TDAP/TD VACCINES (2 - Td or Tdap) 01/04/2024 01/03/2014 COLON MONITORING 01/29/2024 01/28/2014, 01/28/2014 COLONOSCOPY - COLON CA SCREENING 01/29/2024 01/28/2014, 01/28/2014 Colorectal Cancer Screening 01/29/2024 MAMMOGRAM 02/16/2024 02/15/2023, 11/28, 09/01/2018, Additional history exists COVID-19 VACCINE ( season) 2024 05/12/2021, 10/14/2020, 09/23/2020 DEPRESSION SCREENING 06/30/2024 10/02/2022 INFLUENZA VACCINE (Season Ended) 2025 04/30/2020 PAP with HPV 07/21/2025 07/21/2020, 09/29/2015 LIPID TESTING 07/18/2027 07/18/2022, 07/12/2013, 11/23/2011 Respiratory Syncytial Virus (RSV) Vaccine Pt: or over 60 yrs (1 - 1-dose 75+ series) 2038 HEPATITIS B VACCINE Aged Out No longe r eligible based on patient's age to complete this topic HIB VACCINE Aged Out No longer eligi ble based on patient's age to complete this topic HPV VACCINE Aged Out No longer eligi ble based on patient's age to complete this topic MENINGOCOCCAL (Group B) VACCINE SHARED DECISION-MAKING Aged Out No longer eligible based on patient's age to complete this topic MENINGOCOCCAL GROUPS A/C/Y/W VACCINE Aged Out No longer eligible based on patient's age to complete this topic Goals Goal Patient Goal Type Associated Problems Recent Progress Patient-Stated? Author Blood Pressure < 140/90 Blood Pressure 114/80(2022 11:43 AM CDT) Charu Barron MA Procedures Procedure Name Priority Date/Time Associated Diagnosis Comments MAMMO BILAT SCREENING W LAUREN Routine 02/15/2023 Breast cancer screening by mammogram PAP IG LB +HPV APTIMA REFLEX 16,18/45 Routine 07/21/2020 10:32 AM BELT LOOP CUTTER Well woman exam with routine gynecological exam ENDOSCOPY, COLON, SCREENING Routine 01/28/2014 9:20 AM CDT COMPREHENSIVE METABOLIC PANEL Routine 01/03/2014 3:00 PM CDT Essential Hypertension, Benign LIPID PROFILE W LDL/HDL RATIO Routine 01/03/2014 3:00 PM CDT Annual physical exam from Last 3 Months or Most Recently Relevant to Health Maintenance Results * MAMMO BILAT SCREENING W LAUREN (02/15/2023) Anatomical Region Laterality Modality Breast Bilateral Mammography 02/15/2023 us Ashlie Boyle MD MAMMO ORDERABLES Final Resul t * PAP IG LB +HPV APTIMA REFLEX 16,18/45 (07/21/2020 10:32 AM BELT LOOP CUTTER) Diagnosis [facility] ACCOUNT BILL Comment:NEGATIVE FOR INTRAEP ITHELIAL LESION OR MALIGNANCY. Specimen Adequacy [facility] ACCOUNT BILL Comment: Satisfactory for evaluation. Endocervical and/or squamous metaplastic cells (endocervical component) are present. Clinician Provided ICD10 [facility] ACCOUNT BILL Comment: Z01.419 Z12.31 Z80.3 R92.2 B37.3 Performed by [facility] ACCOUNT BILL Comment:Sofya Head, Cytote chnologist (ASCP) Comment . [facility] ACCOUNT BILL Note [facility] ACCOUNT BILL Comment: The Pap smear is a screening test designed to aid in the detection of premalignant and malignant conditions of the uterine cervix. It is not a diagnostic procedure and should not be used as the sole means of detecting cervical cancer. Both false-positive and false-negative reports do occur. . IGLBP CPT Code Automation [facility] ACCOUNT BILL Comment: This liquid based ThinPrep(R) pap test was screened with the use of an image guided system. Human papillomavirus Aptima Negative Negative [facility] ACCOUNT BILL Comment: This nucleic acid amplification test detects fourteen high-risk HPV types (16,18,31,33,35,39,45,51,52,56,58,59,66,68) without differentiation. 07/21/2020 10:3 2 AM BELT LOOP CUTTER 07/21/2020 Narrative [facility] ACCOUNT BILL - 07/24/2020 11:06 PM BELT LOOP CUTTER Source.............Cervix;Endocervix Other..............Post Menopausal No. of containers..01 ThinPrep Vial Resulting Agency Comment Lab Testing performed at: [facility] [id number] [place] Ashlie Boyle MD LAB - PATHOLOGY/CYTOLOGY ORD ERABLES Final Result [facility] ACCOUNT BILL [address] [place] [address] * ENDOSCOPY, COLON, SCREENING (01/28/2014 9:20 AM CDT) Report Endoscopy POC _ Patient Name: Peri Gamez Procedure Date: 01/28/2014 9:20 AM Date of : 1965 Admit Type: Outpatient Age: 48 Room: ROOM 1 Gender: Female Note Status: Finalized Attending MD: Irvin Bose MD _ Procedure: Colonoscopy Indications: Screening for colorectal malignant neoplasm, First colon. Providers: Irvin Bose MD, Maria Guadalupe Weir RN, Conrad Wolff (Anesthesia Staff) Referring MD: Westley Ramirez MD (Referring MD) Medicines: Propofol per Anesthesia Complications: No immediate complications. _ Procedure: After I obtained informed consent, the scope was passed under direct vision. Throughout the procedure, the patient's blood pressure, pulse, and oxygen saturations were monitored continuously. The CFQ 180 AL was introduced through the anus and advanced to the terminal ileum. The quality of the bowel preparation was good. Findings: The terminal ileum contained a single localized non-bleeding erosion. Biopsies were taken with a cold forceps for histology. Internal hemorrhoids were found during retroflexion and were small. The exam was otherwise without abnormality. _ Impression: - A single erosion in the terminal ileum. Biopsied. - Internal hemorrhoids. - The examination was otherwise normal. Recommendation: - High fiber diet. - Await pathology results. - Repeat colonoscopy in 10 years for screening purposes. Procedure Code(s): --- Professional --- 31217, Colonoscopy, flexible, proximal to splenic flexure; with biopsy, single or multiple --- Technical --- 34056, Colonoscopy, flexible, proximal to splenic flexure; with biopsy, single or multiple Diagnosis Code(s): --- Professional --- V76.51, Special screening for malignant neoplasms of colon 569.89, Other specified disorders of intestine 455.0, Internal hemorrhoids without mention of complication --- Technical --- V76.51, Special screening for malignant neoplasms of colon 569.89, Other specified disorders of intestine 455.0, Internal hemorrhoids without mention of complication CPT copyright 2013 [employer]. All rights reserved. The codes documented in this report are preliminary and upon wind site manager review may be revised to meet current compliance requirements. Irvin Bose MD 01/28/2014 9:39 AM This report has been signed electronically. Number of Addenda: 0 Note Initiated On: 01/28/2014 9:20 AM Estimated Blood Loss: Estimated blood loss: none. [facility] ENDOSCOPY 01/28/2014 9:20 AM CDT us Irvin Bose MD GI PROCEDURE ORDERABLES Edit ed Result - Final [facility] ENDOSCOPY * (ABNORMAL) LIPID PROFILE W LDL/HDL (PO REF LAB) (01/03/2014 3:00 PM CDT) Cholesterol 201(H) 125 - 200 mg/dL [facility] Comment: Test Performed at: [facility] [address] [place] [address] SWATHI GÓMEZDO,MPH HDL Cholesterol 73 > OR = 46 mg/dL [facility] Triglycerides 200(H) <150 mg/dL [facility] LDL Direct 95 <130 mg/dL [facility] Comment: Desirable range <100 mg/dL for patients with CHD or diabetes and <70 mg/dL for diabetic patients with known heart disease. CHOL/HDLC RATIO 2.8 < OR = 5.0 (calc) [facility] Non HDL Cholesterol 128 mg/dL (calc) [facility] Comment: Target for non-HDL cholesterol is 30 mg/dL higher than LDL cholesterol target. Blood specimen (specimen) BLOOD SPECIMEN / Unknown 01/03/2014 3:00 PM CDT 01/03/2014 3:00 PM CDT us Westley Ramirez MD LAB - CHEMISTRY ORDERABLE S Final Result Performing Organization Address City/[facility] Co de Phone Number [facility] [address] [place] [address] * COMPREHENSIVE METABOLIC PANEL (01/03/2014 3:00 PM CDT) Glucose 96 65 - 99 mg/dL [facility] Comment: Fasting reference interval BUN 15 7 - 25 mg/dL [facility] Creatinine 1.04 0.50 - 1.05 mg/dL [facility] Comment: For patients >49 years of age, the reference limit for Creatinine is approximately 13% higher for people identified as -[place]. eGFR by MDRD 63 > OR = 60 mL/min/1 .73m2 [facility] eGFR by MDRD 73 > OR = 60 mL/min/1 .73m2 [facility] BUN/Creatinine Ratio NOT APPLICABLE 6 - 22 (calc) [facility] Sodium 138 135 - 146 mmol/L [facility] Potassium 4.6 3.5 - 5.3 mmol/L [facility] Chloride 101 98 - 110 mmol/L [facility] CO2 27 19 - 30 mmol/L [facility] Calcium 9.9 8.6 - 10.4 mg/dL [facility] Protein Total 6.9 6.1 - 8.1 g/dL [facility] Albumin 4.5 3.6 - 5.1 g/dL [facility] Globulin Total 2.4 1.9 - 3.7 g/dL (calc) [facility] Albumin/Globulin Ratio 1.9 1.0 - 2.5 (calc) [facility] Bilirubin Total 0.4 0.2 - 1.2 mg/dL [facility] Alkaline Phosphatase 71 33 - 130 U/L [facility] AST 16 10 - 35 U/L [facility] ALT 12 6 - 29 U/L [facility] Comment: Test Performed at: [employer] [address] [address] [place] [address] SWATHI GÓMEZ DO,MPH Blood specimen (specimen) BLOOD SPECIMEN / Unknown 01/03/2014 3:00 PM CDT 01/03/2014 3:00 PM CDT us Westley Ramirez MD LAB - CHEMISTRY ORDERABLE S Final Result [facility] [address] [place] [address] from Last 3 Months or Most Recently Relevant to Health Maintenance Insurance [facility] Care Teams Rn Radiology Relationship Specialty Start Date End Date Westley Ramirez MD [address] [facility] [place] [id number] PCP - General Internal Medicine 02/01/13 Ashlie Boyle MD [address] [place] [address] Obstetrics and Gynecology 10/02/22
--- OUTSIDE RECORDS SUMMARY | 2024-11-12 22:00 | XMS_ITS | Encounter Summary ---
Author Organization [facility] Address [address] [place] [address] Care Team Providers Care Funding Specialist Name Role Phone Westley Ramirez MD Primary Care Provider Encounter Details Date Type Department Care Team (Late st Contact Info) Description 08/03/1999 Outpatient Historical [facility] Beatrice Lyons MD [address] [place], [place] [id number] Gastric ulcer, unspecified as acute or chronic, without mention of hemorrhage, perforation, or obstruction (Primary Dx) Social History Tobacco Use Types Packs/Day Years Used Date Smoking Tobacco: Never Assessed Comments Unknown Sex and Gender Information Value Date Recorded Sex Assigned at Not on file 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
--- OUTSIDE RECORDS SUMMARY | 2024-11-12 22:00 | XMS_ITS | Clinical Summary ---
Author Organization [facility] Address [address] [place] [phone] Phone Care Team Providers Care Vp Strategy Name Role Phone Westley Ramirez MD Primary Care Provider Allergies Active Allergy Reactions Criticality Noted Date Comments Ampicillin Dizziness Low 11/19/2015 Codeine Dizziness Low 11/19/2015 Medications buPROPion HCl (WELLBUTRIN XL) 150 mg Extended Release 24 hour tablet Take 150 mg by mouth. Active metoprolol tartrate (LOPRESSOR) 25 mg tablet Take 25 mg by mouth. 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 Gender Identity Not on file Sexual Orientation Not on file Last Filed Vital Signs Vital Sign Reading Time Taken Comments Blood Pressure 120/72 11/19/2015 1:46 PM CDT Pulse 70 11/19/2015 1:46 PM CDT Temperature 36.6 C (97.9 F) 11/19/2015 1:46 PM CDT Respiratory Rate 16 11/19/2015 1:46 PM CDT Oxygen Saturation 96% 11/19/2015 1:46 PM CDT Inhaled Oxygen Concentration - - Weight 82.6 kg (182 lb) 11/19/2015 1:46 PM CDT Height 167.6 cm (5' 6 ) 11/19/2015 1:46 PM CDT Body Mass Index 29.38 11/19/2015 1:46 PM CDT Plan of Treatment Health Maintenance Due Date Last Done Comments HPV/Cotest (21-29) 1984 CERVICAL CANCER SCREENING 1993 HPV/Cotest (30-65) 1993 PAP SMEAR 1993 COLORECTAL SCREENING 2008 Colorectal Cancer Screening 2008 FIT-DNA Q 3 years 2008 FIT/FOBT Q 1 year 2008 Flex Sig/CT Colonography Q 5 years 2008 ZOSTER VACCINE (1 of 2) 2013 BREAST CANCER SCREENING 12/10/2020 12/11/19 20, 09/01/2018, 08/29/2018, Additional history exists DTAP/TDAP/TD VACCINES (2 - T d or Tdap) 01/04/2024 01/03/2014 INFLUENZA VACCINE (#1) 2024 RSV VACCINE (60+ or ) (1 - 1-dose 75+ series) 2038 Procedures Procedure Name Priority Date/Time Associated Diagnosis Comments MAMMO 3D LAUREN SCREEN BILAT W OR WO CAD Routine 12/11/2019 12:03 PM CDT Breast cancer screening by mammogram from Last 3 Months or Most Recently Relevant to Health Maintenance Results * MAMMO SCRN BILAT 3D LAUREN W OR WO CAD (12/11/2019 12:03 PM CDT) Anatomical Region Laterality Modality Breast Bilateral Mammography 12/11/2019 12:0 3 PM CDT Impressions 12/13/2019 9:45 AM CDT IMPRESSION: No mammographic evidence of malignancy. RECOMMENDATIONS: Routine screening mammogram in one year. DICTATION LOCATION: [facility] Narrative 12/13/2019 9:45 AM CDT BILATERAL FULL-FIELD DIGITAL SCREENING MAMMOGRAM WITH CAD WITH 3D TOMOSYNTHESIS DATE: 12/11/2019 12:03 PM HISTORY: Routine screening. TECHNIQUE: Full-field digital craniocaudal and mediolateral oblique projections of both breasts were obtained. Low-dose full-field digital breast tomosynthesis examination was performed with 2D and 3D acquisitions. Examination is read in conjunction with computer aided detection. COMPARISON: 09/01/2018, 08/29/2018, 07/05/2017 and 09/09/2015 BREAST COMPOSITION: Scattered fibroglandular densities. FINDINGS: No suspicious mass, suspicious microcalcifications, or architectural distortion in either breast is identified. Since the prior study, there has been no significant interval change. The computer aided diagnosis detects no significant abnormality. OVERALL FINAL ASSESSMENT: BI-RADS CATEGORY 1 : Negative Procedure Note Elliot Orr MD - 12/13/2019 BILATERAL FULL-FIELD DIGITAL SCREENING MAMMOGRAM WITH CAD WITH 3D TOMOSYNTHESIS DATE: 12/11/2019 12:03 PM HISTORY: Routine screening. TECHNIQUE: Full-field digital craniocaudal and mediolateral oblique projections of both breasts were obtained. Low-dose full-field digital breast tomosynthesis examination was performed with 2D and 3D acquisitions. Examination is read in conjunction with computer aided detection. COMPARISON: 09/01/2018, 08/29/2018, 07/05/2017 and 09/09/2015 BREAST COMPOSITION: Scattered fibroglandular densities. FINDINGS: No suspicious mass, suspicious microcalcifications, or architectural distortion in either breast is identified. Since the prior study, there has been no significant interval change. The computer aided diagnosis detects no significant abnormality. OVERALL FINAL ASSESSMENT: BI-RADS CATEGORY 1 : Negative IMPRESSION: No mammographic evidence of malignancy. RECOMMENDATIONS: Routine screening mammogram in one year. DICTATION LOCATION: [facility] Ashlie Boyle MD MAMMO ORDERABLES Final Resul t from Last 3 Months or Most Recently Relevant to Health Maintenance Insurance [facility] [id number] Care Teams Vp Strategy Relationship Specialty Start Date End Date Westley Ramirez MD [address] [address] PCP - General Internal Medicine 11/19/15
--- OUTSIDE RECORDS SUMMARY | 2024-11-12 22:00 | XMS_ITS | Continuity of Care Document ---
Author Organization [facility] Address [address] [place] [address] Phone Care Team Providers Care Memory Care Director Name Role Phone Juana Coates Unavailable Unavailable Allergies, Adverse Reactions, Alerts Substance Reaction Status Criticality Penicillins Rash Active No Information codeine Other Active No Information Penicillins Unknown Active No Information codeine Unknown Active No Information Medications Medication Instructions Dosage Effective Dates (start - stop) Status Comments escitalopram 5 mg tablet - Active metoprolol tartrate 100 mg tablet - Active Rogers 5 mg-325 mg tablet take 1 tablet by Oral route q 6 hours prn post surgical pain - No Longer Active Surgery April 06 Procedures Procedure Date Global/Postop followup visit Meniscectomy Med OR Lat Office/outpatient visit,est, mod 2020 MRI lower extrm joint, w/o contrast Office/outpatient visit,est, mod 2020 X-ray exam both knees, standing 021 X-ray exam knee, 1 or 2 views Asp/inject major joint or bursa w/o US g uidance Depo Medrol Methylprednisolone 40 MG inj Office/outpatient visit,new, mod 2020 X-ray exam foot, minimum 3 views 2017 Office/outpatient visit,est, mod 2017 X-ray exam finger(s), minimum 2 views Oc X-ray exam finger(s), minimum 2 views Oc Kenalog Triamcinolone acetonide inj Asp/inject Minor joint or bursa w/o US g uidance Office/outpatient visit,new, [facility] 2016 Advance Directives Directive Yes / No Effective Date File Name No Information Encounters Encounter Description Practice Location Reason(s) For Visit Diagnoses Date Provider Providers Copied on Encounter [facility], [address], [id number], [place] tel:[phone] [facility] left knee (chief complaint) Other tear of medial meniscus of left knee, current injury, subsequent encounterUnila teral primary osteoarthritis , left knee 1 Adrienne Arias. [address], [id number], [place]. tel:[phone] [facility], [address] [place] [address], [id number], [place] tel:[phone] [facility] No Information 1 Rod Dejesus. [address], [id number], [place]. tel:[phone] [facility], [address], [id number], [place] tel:[phone] [facility] No Information 1 Rod Dejesus. [address], [id number], [place]. tel:[phone] Office/outpa tient visit,est, mod [facility], [address], [id number], [place] tel:[phone] [facility] left knee (chief complaint) Pain in left kneeOth tear of medial meniscus, current injury, left knee, init 1 Rod Dejesus. [address], [id number], [place]. tel:[phone] Referring Provider: Westley Durbin, [address], [place], [address]. tel:[phone] [facility], [address] [address], [place], [place], [id number], [place] tel:[phone] [facility] Pain in left knee 1 [facility]. [address], [place], [place], [id number], [place]. tel:[phone] Referring Provider: Oleg Cleaning, [address], [place], [address]. tel:[phone] Office/outpa tient visit,[facility], [facility], [address] [address], [place], [place], [id number], [place] tel:[phone] [facility] left knee (chief complaint) Pain in left knee 1 Rod Dejesus. [address], [place], [place], [id number], [place]. tel:[phone] Office/outpa tient visit,[facility], [facility], [address], [place], [place], [id number], [place] tel:[phone] [facility] left knee (chief complaint) Pain in left knee 1 Rod Dejesus. [address], [place], [place], [id number], [place]. tel:[phone] Referring Provider: Westley Durbin, [address], [place], [address]. tel:[phone] Office/outpa tient visit,[facility], [facility], [address], [place], [place], [id number], [place] tel:[phone] [facility] Pain on top right of right foot (chief complaint) Pain in rt footHallux rigidus, right foot Kareem-0 [id number] 8 Franco Cruz. [address], [place], [address], [place]. tel:[phone] Referring Provider: Westley Durbin, [address], [place], [address]. tel:[phone] Office/outpa tient visit,new, [facility], [address], [place], [id number], [place] tel:[phone] [facility] bilateral hands (chief complaint) Pain in right handPain in left handUnilateral primary osteoarthritis of first carpometacarpa l joint, left handUnilateral primary osteoarthritis of first carpometacarpa l joint, right hand 7 Rosalinoangelica Mancera. [address], [address] [facility], [place], [place], [id number], [place]. tel:[phone] Referring Provider: Westley Durbin, [address], [place], [address]. tel:[phone] Family History Family Member Type Diagnosis Age At Onset Son Problem (finding) Cancer, unknown Mother Problem (finding) hypertension Brother Problem (finding) Heart trouble Father Problem (finding) hypertension Sister Problem (finding) Cancer, unknown Payers Payer name Insurance type Covered alliance party ID Authoriza tion(s) [facility] [id number] Social History Type Description Quantity Date Captured Comments Alcohol Use Details Caffeine Use Details Unknown Tobacco Use Status No Information Smoking Status Never smoker Sex Female Vital Signs Date / Time: Height Weight BMI Pulse Rate Blood Pressure Temperature Respiratory Rate Body Surface Area Head Circumference Head Circ. Percentile Wt./Kendall. Percentile BMI percentile Pulse Ox Inhaled Ox 11:17 AM 66.00 in 81.647 kg (180.00 lbs) 29.0 5 kg/m andreser (2) Chief Complaint And Reason For Visit From encounter dated 04/13/2021 11:20'. left knee (chief complaint). Description: Peri returns to the office today for follow up of the left knee. She is status post left knee arthroscopy with partial medial menisectomy. DOS 04/06/2021. 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 She is not taking pain medication. Sutures removed today. Reason For Referral Reason For Referral No Information Plan Of Treatment Date Type Action Status Referral Ordered: MRI lower extrm joint, w/o contrast LT knee Appointment date/timeframe: 02/16/2021 ordered Referral Ordered: X-ray exam both knees, standing ordered Referral Ordered: X-ray exam knee, 1 or 2 views LT knee ordered Referral Ordered: X-ray exam foot, minimum 3 views RT foot ordered Referral Ordered: X-ray exam finger(s), minimum 2 views LT ordered Referral Ordered: X-ray exam finger(s), minimum 2 views RT ordered History Of Present Illness Encounter Date Complaint History Of Prese nt Illness left knee Peri returns to the office today for follow up of the left knee. She is status post left knee arthroscopy with partial medial menisectomy. DOS 04/06/2021. She has evidence of grade 3 chondromalacia of the MFC and grade 4 chondromalacia of the patella and trochlea. She is not taking pain medication. Sutures removed today. left knee Peri returns wit h left knee MRI results. left knee Peri returns wit h continued left knee pain. The cortisone did not work as she is still having issues. left knee Peri presents wi th anterior and medial left knee pain. She slipped on her floor a year ago and has had pain ever since. We will obtain x-rays. Pain on top right of right foot bilateral hands Peri presents to the office today on April 23, 2017. She is here because of pain at the base of both thumbs. The pain has been present for about 5 years. Peri does not recall any specific injury. She relates her pain to arthritis. She rates her pain a 10 on a scale of 1-10. She describes her pain as constant, aching, and sharp. She also reports popping and burning. Rest and opfm-wea-kjlwtuf medications help. Pinching and gripping make the symptoms worse. Peri reports that the left hand is more painful than the right. There is no numbness or tingling. There is no triggering. Peri is seen today in consultation at the request of Dr. Westley Ramirez. Functional Status Date Functional Assessmen t No Information Instructions Date Instruction Additional Infor narda No Information Assessments Type Assessment Date assessment Other tear of medial meniscus of left knee, current injury, subsequent encounter assessment Unilateral primary osteoarthriti s, left knee impression Doing well. Encourag ed ice and otc nsaids. Discussed gentle motion and activities as tolerated including walking. Follow up prn. Patient Care Teams Name Effective Dates (start - stop) Status Members No Information
[2024-11-12 22:24] VITALS: BP 138/76; PULSE 82; RESP 16; TEMP 36.5; O2SAT 98
--- OUTSIDE RECORDS SUMMARY | 2024-11-13 05:24 | XMS_ITS | Referral Summary ---
Author Organization [facility] Address [address] [place] [address] Care Team Providers Care Psychiatry Physician Name Role Phone Westley Ramirez MD Primary Care Provider + Encounters Date Type Department Care Team Description 08/27/2024 10:26 AM FITNESS AND WELLNESS INSTRUCTOR Anesthesia Event [facility] [address] [place] [phone] Todd Rivera DO 08/27/2024 10:30 AM FITNESS AND WELLNESS INSTRUCTOR - 08/27/2024 11:00 AM FITNESS AND WELLNESS INSTRUCTOR Surgery [facility] [address] [place] [phone] Troy Beauchamp MD COLON REMOVAL SNARE 08/27/2024 9:43 AM FITNESS AND WELLNESS INSTRUCTOR - 08/27/2024 11:27 AM FITNESS AND WELLNESS INSTRUCTOR Hospital Encounter [facility] [address] [place] [phone] Troy Beauchamp MD Screen for colon [...] Sex Assigned at Female 09/03/2018 4:39 PM FITNESS AND WELLNESS INSTRUCTOR Legal Sex Female 4:02 AM FITNESS AND WELLNESS INSTRUCTOR Gender Identity Female 09/03/2018 4:39 PM FITNESS AND WELLNESS INSTRUCTOR Sexual Orientation Straight 09/03/2018 4: 39 PM FITNESS AND WELLNESS INSTRUCTOR 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 Not on file Not on file Not on file Last Filed Vital Signs Vital Sign Reading Time Taken Comments Blood Pressure 126/81 08/27/2024 11:21 AM FITNESS AND WELLNESS INSTRUCTOR Pulse 57 08/27/2024 11:21 AM FITNESS AND WELLNESS INSTRUCTOR Temperature 37 C (98.6 F) 08/27/2024 10:09 AM FITNESS AND WELLNESS INSTRUCTOR Respiratory Rate 15 08/27/2024 11:21 AM FITNESS AND WELLNESS INSTRUCTOR Oxygen Saturation 100% 08/27/2024 11:21 AM FITNESS AND WELLNESS INSTRUCTOR Inhaled Oxygen Concentration - - Weight 99.3 kg (219 lb) 08/27/2024 10:09 AM FITNESS AND WELLNESS INSTRUCTOR Height 166 cm (5' 5.35 ) 08/27/2024 10:09 AM FITNESS AND WELLNESS INSTRUCTOR Body Mass Index 36.05 08/27/2024 10:09 AM FITNESS AND WELLNESS INSTRUCTOR Plan of Treatment Not on file Procedures Procedure Name Priority Date/Time Associated Diagnosis Comments SURGICAL PATHOLOGY Routine 08/27/2024 10 :37 AM FITNESS AND WELLNESS INSTRUCTOR Screen for colon cancer COLON REMOVAL SNARE Open Access 08/27/2024 1 0:26 AM FITNESS AND WELLNESS INSTRUCTOR Screen for colon cancer COLONOSCOPY 08/27/2024 9:36 AM FITNESS AND WELLNESS INSTRUCTOR SCREENING MAMMOGRAM 2D BILATERAL Schedule Routine, Read Routine (OP Routine) 08/02/2024 7:31 AM FITNESS AND WELLNESS INSTRUCTOR HEPATITIS C ANTIBODY Routine 09/10/2018 3:13 PM CDT Encounter for hepatitis C screening test for low risk patient from Last 3 Months or Most Recently Relevant to Health Maintenance Results * Surgical pathology (08/27/2024 10:37 AM FITNESS AND WELLNESS INSTRUCTOR) Tissue specimen (specimen) (Polyp(s), colon/colorectal, esophageal, gastric) 08/27/2024 10:37 AM FITNESS AND WELLNESS INSTRUCTOR Tissue specimen (specimen) (Polyp(s), colon/colorectal, esophageal, gastric) 08/27/2024 10:46 AM FITNESS AND WELLNESS INSTRUCTOR Narrative PATHOLOGY [facility] - 08/30/2024 9:21 AM FITNESS AND WELLNESS INSTRUCTOR [address] [address] Tele: Shannan Copeland MD - Wool Shearer Note to Patients: This report may contain [...] PATHOLOGY REPORT Patient Name: RUSS MAHARAJ Address: [address] [place] [address] Gender: F : 1965 (Age: 59) Service: Gastro Location: [facility], Hospital #: [id number] [place] [facility] [place] Taken: 08/27/2024 Received 08/27/2024 Reported: 08/30/2024 Physician(s): Sandra Lopez M.D. DIAGNOSIS: Colon, transverse, polypectomy: - Tubular adenoma; negative for high-grade dysplasia or malignancy Colon, sigmoid, polypectomy: - Tubular adenoma; negative for high-grade dysplasia or malignancy [facility]/08/30/2024 09:21 Examining Pathologist: Oleg Stokes M.D. Report [...] filtered and submitted entirely in cassette B1. [facility]/08/27/2024 16:39 [facility] MICROSCOPIC DESCRIPTION: Sections of the transverse polyp are multiple polypoid mucosal fragments with patchy tubular adenoma features without high-grade dysplasia or malignancy. Sections from the sigmoid polyp show polypoid mucosa with tubular adenoma features, without high-grade dysplasia or evidence of malignancy. Clerical Data Follows A; 09530 B; 95526 REPORT IMAGES AND/OR SCANNED DOCUMENTS ONLY VIEWABLE IN PDF FORMAT The immunohistochemical test(s) cited in this report, if any, was developed and its performance characteristics determined by [facility]. It has not been cleared or approved by the U.S. Food and Drug Administration. The FDA has determined that such clearance or approval is not necessary. This test is used for clinical purposes. It should not be regarded as investigational or for research. [facility] is certified under the Clinical Laboratory [...] part or completely in the following laboratories: [facility], [address], [place], [place] [address] [place] [address], [address] [place] [address]. [place] Troy Beauchamp MD LAB PATHOLOGY ORDERABLES Ginger higgins Result PATHOLOGY [facility] Laboratory Receiving [address] [place] [address] * Colonoscopy (08/27/2024 9:36 AM FITNESS AND WELLNESS INSTRUCTOR) Anatomical Region Laterality Modality Other Narrative Procedure Note Troy Beauchamp MD - 08/27/2024 9:36 AM CST ENDOSCOPY LAB Patient Name: Russ Maharaj Procedure Date: 08/27/2024 9:36 AM Admit Type: Outpatient Room: [facility] 3 Date of : 1965 Instrument [...] Screening Mammogram 2D Bilateral (08/02/2024 7:31 AM FITNESS AND WELLNESS INSTRUCTOR) SCRIBED BI-RADS 1 Anatomical Region Laterality Modality Breast Bilateral Mammography Historical Provider IMG MAMMO PROCEDURES Ginger l Result * Hepatitis C antibody (09/10/2018 3:13 PM CDT) Hep C Ab Non-Reactiv e Non-Reactiv e [facility] Blood specimen (specimen) 09/10/2018 3:13 PM CDT 09/10/2018 5:49 PM CDT Narrative [facility] - 09/10/2018 7:16 PM CDT Westley Ramirez MD LAB MICROBIOLOGY - GENER AL ORDERABLES Final Result [facility] [address] [place] [address] from Last 3 Months or Most Recently Relevant to Health Maintenance Insurance [facility] CHOICE PLUS Advance Directives For more information, please contact: [phone] * Full Code (Latest Code Status on File) Date Activated Date Inactivated Comments 08/27/2024 9:58 AM 08/27/2024 3:37 PM Care Teams Psychiatry Physician Relationship Specialty Start Date End Date Westley Ramirez MD [address] [address] PCP - General 11/14/16
--- OUTSIDE RECORDS SUMMARY | 2024-11-13 05:24 | XMS_ITS | Clinical Summary ---
Author Organization [facility] Address [address] [place] [address] Care Team Providers Care Margarine Churn Operator Name Role Phone Westley Ramirez MD Primary Care Provider [phone] Ashlie Boyle MD Unavailable [phone] Source Comments [facility],non-owned Affiliates and Associated Physician Practices is amultiple site organization consisting of ambulatory clinics and hospital sitesin [place], [place], [place] and [place]. This disclosure is being madepursuant to the Care Everywhere program and may not contain all information available regarding this patient. Last updated 18.[facility] Allergies Active Allergy Reactions Criticality Noted Date [...] on file Legal Sex Female 6:43 AM TERRAZZO HELPER Gender Identity Not on file Sexual [...] APTIMA REFLEX 16,18/45 Routine 07/21/2020 10:32 AM TERRAZZO HELPER Well woman exam with routine gynecological exam [...] +HPV APTIMA REFLEX 16,18/45 (07/21/2020 10:32 AM TERRAZZO HELPER) Diagnosis [facility] ACCOUNT BILL Comment:NEGATIVE FOR INTRAEP [...] (16,18,31,33,35,39,45,51,52,56,58,59,66,68) without differentiation. 07/21/2020 10:3 2 AM TERRAZZO HELPER 07/21/2020 Narrative [facility] ACCOUNT BILL - 07/24/2020 11:06 PM TERRAZZO HELPER Source.............Cervix;Endocervix Other..............Post Menopausal No. of containers..01 ThinPrep Vial Resulting Agency Comment Lab Testing performed at: [address] [id number] [place] Ashlie Boyle MD LAB - PATHOLOGY/CYTOLOGY ORD ERABLES Final Result [facility] ACCOUNT BILL [address] [place] [address] * ENDOSCOPY, COLON, SCREENING (01/28/2014 9:20 AM [...] screening purposes. Procedure Code(s): --- Professional --- 22980, Colonoscopy, flexible, proximal to splenic flexure; with biopsy, single or multiple --- Technical --- 56231, Colonoscopy, flexible, proximal to splenic flexure; with [...] without mention of complication CPT copyright 2013 [employer]. All rights reserved. The codes documented in this report are preliminary and upon dry pan feeder review may be revised to meet current compliance requirements. Irvin Bose MD 01/28/2014 9:39 AM This report has been signed electronically. Number of Addenda: 0 Note Initiated On: 01/28/2014 9:20 AM Estimated Blood Loss: Estimated blood loss: none. [facility] ENDOSCOPY 01/28/2014 9:20 AM CDT us Irvin Bose MD GI PROCEDURE ORDERABLES Edit ed Result - Final [facility] ENDOS[facility] * (ABNORMAL) LIPID PROFILE W LDL/HDL (PO REF LAB) (01/03/2014 3:00 PM CDT) Cholesterol 201(H) 125 - 200 mg/dL [facility] Comment: Test Performed at: [facility] [address] [place] [address] SWATHI GÓMEZDO,MPH HDL Cholesterol 73 > OR [...] ORDERABLE S Final Result Performing Organization Address City/[facility] Co de Phone Number [facility] [phone] [place] [address] * COMPREHENSIVE METABOLIC PANEL (01/03/2014 3:00 PM CDT) Glucose 96 65 - 99 mg/dL [facility] Comment: Fasting reference interval BUN 15 7 - 25 mg/dL [facility] Creatinine 1.04 0.50 - 1.05 mg/dL [facility] Comment: For patients >49 years of age, the reference limit for Creatinine is approximately 13% higher for people identified as -Wallisian. eGFR by MDRD 63 > OR = [...] 29 U/L [facility] Comment: Test Performed at: [facility] [address] [address] [place] [address] SWATHI GÓMEZ DO,MPH Blood specimen (specimen) BLOOD SPECIMEN / Unknown 01/03/2014 3:00 PM CDT 01/03/2014 3:00 PM CDT us Westley Ramirez MD LAB - CHEMISTRY ORDERABLE S Final Result [facility] [address] [place] [address] from Last 3 Months or Most Recently Relevant to Health Maintenance Insurance [facility] Care Teams Margarine Churn Operator Relationship Specialty Start Date End Date Westley Ramirez MD [address] [facility] [address], [place] [phone] PCP - General Internal Medicine 02/01/13 Ashlei Boyle MD [address] [place] [address] Obstetrics and Gynecology 10/02/22
--- OUTSIDE RECORDS SUMMARY | 2024-11-13 05:24 | XMS_ITS | Clinical Summary ---
Author Organization [facility] Address [address] [place] [phone] Phone Care Team Providers Care Notary Public Name Role Phone Westley Ramirez MD Primary Care Provider [phone] Allergies Active Allergy Reactions Criticality Noted Date [...] on file Legal Sex Female 4:51 AM RAIL CAR LOADER Gender Identity Not on file Sexual Orientation [...] screening mammogram in one year. DICTATION LOCATION: [facility] Narrative 12/13/2019 9:45 AM CDT BILATERAL FULL-FIELD [...] screening mammogram in one year. DICTATION LOCATION: [facility] Ashlie Boyle MD MAMMO ORDERABLES Final Resul t from Last 3 Months or Most Recently Relevant to Health Maintenance Insurance [id number] Care Teams Notary Public Relationship Specialty Start Date End Date Westley Ramirez MD [address] [address] PCP - General Internal Medicine 11/19/15
--- OUTSIDE RECORDS SUMMARY | 2024-11-13 05:24 | XMS_ITS | Continuity of Care Document ---
Author Organization [facility] Address [address] [place] [address] Phone Care Team Providers Care Homicide Squad Lieutenant Name Role Phone Juana Coates Unavailable Unavailable Allergies, Adverse Reactions, Alerts Substance Reaction Status Criticality Penicillins Rash Active No Information codeine Other Active No Information Penicillins Unknown Active No Information codeine Unknown Active No Information Medications Medication Instructions Dosage Effective Dates (start - stop) Status Comments escitalopram 5 mg tablet - Active metoprolol tartrate 100 mg tablet - Active [place] 5 mg-325 mg tablet take 1 tablet [...] bursa w/o US g uidance Office/outpatient visit,new, [facility] 2016 Advance Directives Directive Yes / No Effective Date File Name No Information Encounters Encounter Description Practice Location Reason(s) For Visit Diagnoses Date Provider Providers Copied on Encounter [facility], [address], [id number], [place] tel:[phone] [facility] left knee (chief complaint) Other tear of medial meniscus of left knee, current injury, subsequent encounterUnila teral primary osteoarthritis , left knee 1 Adrienne Arias. [address], [id number], [place]. tel:[phone] [facility], [address] [place] [address], [id number], [place] tel:[phone] [facility] No Information 1 Rod Dejesus. [address], [id number], [place]. tel:[phone] [facility], [address], [id number], [place] tel:[phone] [facility] No Information 1 Rod Dejesus. [address], [id number], [place]. tel:[phone] Office/outpa tient visit,est, mod [facility], [address], [id number], [place] tel:[phone] [facility] left knee (chief complaint) Pain in left kneeOth tear of medial meniscus, current injury, left knee, init 1 Rod Dejesus. [address], [id number], [place]. tel:[phone] Referring Provider: Westley Durbin, [address] [facility] [address], [place], [address]. tel:[phone] [facility], [address] [address], [place], [place], [id number], [place] tel:[phone] [facility] Pain in left knee 1 [facility]. [address] [facility], [place], [place], [id number], [place]. tel:[phone] Referring Provider: Oleg Cleaning, [address] [facility] [address], [place], [address]. tel:[phone] Office/outpa tient visit,[facility], [facility], [address] [address], [place], [place], [id number], [place] tel:[phone] [facility] left knee (chief complaint) Pain in left knee 1 Rod Dejesus. [address] [facility], [place], [place], [id number], [place]. tel:[phone] Office/outpa tient visit,[facility], [facility], [address] [facility] [address], [place], [place], [id number], [place] tel:[phone] [facility] left knee (chief complaint) Pain in left knee 1 Rod Dejesus. [address] [facility] [address], [place], [place], [id number], [place]. tel:[phone] Referring Provider: Westley Durbin, [address] [facility] [address], [place], [address]. tel:[phone] Office/outpa tient visit,[facility], [facility], [address] [facility] [address], [place], [place], [id number], [place] tel:[phone] [facility] Pain on top right of right foot (chief complaint) Pain in rt footHallux rigidus, right foot Kareem-0 [id number] 8 Franco Cruz. [address] [facility], [place], [address], [place]. tel:[phone] Referring Provider: Westley Durbin, [address] [facility] [address], [place], [address]. tel:[phone] Office/outpa tient visit,new, [facility], [address] [facility], [place], [id number], [place] tel:[phone] [facility] bilateral hands (chief complaint) Pain in right handPain in left handUnilateral primary osteoarthritis of first carpometacarpa l joint, left handUnilateral primary osteoarthritis of first carpometacarpa l joint, right hand 7 Rosalinoangelica Mancera. [address] [facility], [address] [facility] [place], [place], [id number], [place]. tel:[phone] Referring Provider: Westley Durbin, [address] [facility] [address], [place], [address]. tel:[phone] Family History Family Member Type Diagnosis Age At Onset Son Problem (finding) Cancer, unknown Mother Problem (finding) hypertension Brother Problem (finding) Heart trouble Father Problem (finding) hypertension Sister Problem (finding) Cancer, unknown Payers Payer name Insurance type Covered alliance party ID Authoriza tion(s) [facility] [id number] Social History Type Description Quantity Date Captured [...] also reports popping and burning. Rest and eoux-din-[id number] medications help. Pinching and gripping make the [...]
--- OUTSIDE RECORDS SUMMARY | 2024-11-13 05:24 | XMS_ITS | Encounter Summary ---
Author Organization [facility] Address [address] [place] [address] Care Team Providers Care Digital Technician Name Role Phone Westley Ramirez MD Primary Care Provider Encounter Details Date Type Department Care Team (Late st Contact Info) Description 08/03/1999 Outpatient Historical [facility] Beatrice Lyons MD [address] [facility] [address] [place], [place] [id number] Gastric ulcer, unspecified as acute or chronic, without mention of hemorrhage, perforation, or obstruction (Primary Dx) Social History Tobacco Use Types Packs/Day Years Used Date Smoking Tobacco: Never Assessed Comments Unknown Sex and Gender Information Value Date Recorded Sex Assigned at Not on file Legal Sex Female 4:51 AM ORACLE SPECIALIST Gender Identity Not on file Sexual Orientation Not on file documented as of this encounter Plan of Treatment Not on file documented as of this encounter Visit Diagnoses Diagnosis Gastric ulcer, unspecified as acute or chronic, without mention of hemorrhage, perforation, or obstruction- Primary documented in this encounter Care Teams Digital Technician Relationship Specialty Start Date End Date Westley Ramirez MD [address] [address] PCP - General Internal Medicine 11/19/15 documented as of this encounter
--- OUTSIDE RECORDS SUMMARY | 2024-11-13 05:24 | XMS_ITS | Clinical Summary ---
Author Organization [facility] Address [address] [place] [address] Care Team Providers Care Special Client Bus Driver Name Role Phone Westley Ramirez MD Primary [...] Department Care Team Description 08/27/2024 10:30 AM RAIL CAR MAINTENANCE MECHANIC - 08/27/2024 11:00 AM RAIL CAR MAINTENANCE MECHANIC Surgery [facility] [address] [place] [phone] Troy Beauchamp MD COLON REMOVAL SNARE 08/27/2024 10:26 AM RAIL CAR MAINTENANCE MECHANIC Anesthesia Event [facility] [address] [place] [phone] Todd Rivera DO 08/27/2024 9:43 AM RAIL CAR MAINTENANCE MECHANIC - 08/27/2024 11:27 AM RAIL CAR MAINTENANCE MECHANIC Hospital Encounter [facility] [address] [place] [phone] Troy Beauchamp MD Screen for colon cancer [...] Sex Assigned at Female 09/03/2018 4:39 PM RAIL CAR MAINTENANCE MECHANIC Legal Sex Female 4:02 AM RAIL CAR MAINTENANCE MECHANIC Gender Identity Female 09/03/2018 4:39 PM RAIL CAR MAINTENANCE MECHANIC Sexual Orientation Straight 09/03/2018 4: 39 PM RAIL CAR MAINTENANCE MECHANIC 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 file Not on file Not on file Obstetrics History Last Filed Vital Signs Vital Sign Reading Time Taken Comments Blood Pressure 126/81 08/27/2024 11:21 AM RAIL CAR MAINTENANCE MECHANIC Pulse 57 08/27/2024 11:21 AM RAIL CAR MAINTENANCE MECHANIC Temperature 37 C (98.6 F) 08/27/2024 10:09 AM RAIL CAR MAINTENANCE MECHANIC Respiratory Rate 15 08/27/2024 11:21 AM RAIL CAR MAINTENANCE MECHANIC Oxygen Saturation 100% 08/27/2024 11:21 AM RAIL CAR MAINTENANCE MECHANIC Inhaled Oxygen Concentration - - Weight 99.3 kg (219 lb) 08/27/2024 10:09 AM RAIL CAR MAINTENANCE MECHANIC Height 166 cm (5' 5.35 ) 08/27/2024 10:09 AM RAIL CAR MAINTENANCE MECHANIC Body Mass Index 36.05 08/27/2024 10:09 AM RAIL CAR MAINTENANCE MECHANIC Plan of Treatment Health Maintenance Due Date [...] SURGICAL PATHOLOGY Routine 08/27/2024 10 :37 AM RAIL CAR MAINTENANCE MECHANIC Screen for colon cancer COLON REMOVAL SNARE Open Access 08/27/2024 1 0:26 AM RAIL CAR MAINTENANCE MECHANIC Screen for colon cancer COLONOSCOPY 08/27/2024 9:36 AM RAIL CAR MAINTENANCE MECHANIC SCREENING MAMMOGRAM 2D BILATERAL Schedule Routine, Read Routine (OP Routine) 08/02/2024 7:31 AM RAIL CAR MAINTENANCE MECHANIC HEPATITIS C ANTIBODY Routine 09/10/2018 3:13 PM CDT Encounter for hepatitis C screening test for low risk patient from Last 3 Months or Most Recently Relevant to Health Maintenance Results * Surgical pathology (08/27/2024 10:37 AM RAIL CAR MAINTENANCE MECHANIC) Tissue specimen (specimen) (Polyp(s), colon/colorectal, esophageal, gastric) 08/27/2024 10:37 AM RAIL CAR MAINTENANCE MECHANIC Tissue specimen (specimen) (Polyp(s), colon/colorectal, esophageal, gastric) 08/27/2024 10:46 AM RAIL CAR MAINTENANCE MECHANIC Narrative PATHOLOGY [facility] - 08/30/2024 9:21 AM RAIL CAR MAINTENANCE MECHANIC [address] [address] Tele: Shannan Copeland MD - Cable Worker Helper Note to Patients: This report may contain [...] PATHOLOGY REPORT Patient Name: RUSS MAHARAJ Address: [address] [place] [address] Gender: F : 1965 (Age: 59) Service: Gastro Location: [facility], Hospital #: [id number] Patient Type: [facility] Taken: 08/27/2024 Received 08/27/2024 [...] filtered and submitted entirely in cassette B1. [facility]/08/27/2024 16:39 [facility] MICROSCOPIC DESCRIPTION: Sections of the transverse polyp are multiple polypoid mucosal fragments with patchy tubular adenoma features without high-grade dysplasia or malignancy. Sections from the sigmoid polyp show polypoid mucosa with tubular adenoma features, without high-grade dysplasia or evidence of malignancy. Clerical Data Follows A; [id number] B; [id number] REPORT IMAGES AND/OR SCANNED DOCUMENTS ONLY VIEWABLE IN PDF FORMAT The immunohistochemical test(s) cited in this report, if any, was developed and its performance characteristics determined by [facility]. It has not been cleared or approved by the U.S. Food and Drug Administration. The FDA has determined that such clearance or approval is not necessary. This test is used for clinical purposes. It should not be regarded as investigational or for research. [facility] is certified under the Clinical Laboratory [...] part or completely in the following laboratories: [facility], [facility] [facility], [place], [place] [address] [place] [address], [address] [facility], [place] [address]. [place] Troy Beauchamp MD LAB PATHOLOGY ORDERABLES Ginger higgins Result PATHOLOGY [facility] Laboratory Receiving [address] [place] [address] * Colonoscopy (08/27/2024 9:36 AM RAIL CAR MAINTENANCE MECHANIC) Anatomical Region Laterality Modality Other Narrative Procedure Note Troy Beauchamp MD - 08/27/2024 9:36 AM CST ENDOSCOPY LAB Patient Name: Russ Maharaj Procedure Date: 08/27/2024 9:36 AM Admit Type: Outpatient Room: [facility] Date of : 1965 Instrument Name: [id number] [...] Screening Mammogram 2D Bilateral (08/02/2024 7:31 AM RAIL CAR MAINTENANCE MECHANIC) SCRIBED BI-RADS 1 Anatomical Region Laterality Modality Breast Bilateral Mammography Historical Provider IMG MAMMO PROCEDURES Ginger l Result * Hepatitis C antibody (09/10/2018 3:13 PM CDT) Hep C Ab Non-Reactiv e Non-Reactiv e [facility] Blood specimen (specimen) 09/10/2018 3:13 PM CDT 09/10/2018 5:49 PM CDT Narrative [facility] - 09/10/2018 7:16 PM CDT Westley Ramirez MD LAB MICROBIOLOGY - GENER AL ORDERABLES Final Result [facility] [address] [place] [address] from Last 3 Months or Most Recently Relevant to Health Maintenance Insurance [facility] Advance Directives For more information, please contact: [phone] * Full Code (Latest Code Status on File) Date Activated Date Inactivated Comments 08/27/2024 9:58 AM 08/27/2024 3:37 PM Care Teams Special Client Bus Driver Relationship Specialty Start Date End Date Westley Ramirez MD [address] [address] PCP - General 11/14/16
[2024-11-13] MEDS: KETOROLAC 30 MG/ML VIAL (*BKC) IM (05:36)
--- NOTE | 2024-11-13 06:45 | ED_ITS ---
HPI - Fall General Chief Complaint: Fall Stated Complaint: Fall-dislocated L thumb, R hip pain Time Seen by Provider: 11/13/24 04:39 History of Present Illness HPI Narrative: 59-year-old female presenting to the emergency department after mechanical fall. She states she was out dancing when she fell forward onto her left thumb. She injured her right side of the back as well as her left thumb it appears dislocated. Denied hit her head or lose consciousness. Does not take any blood thinners. She has good range of motion of the extremity but states that it is dislocated. No neuropathy. No history of injury to the extremities and no surgical history to the extremities. Related Data Allergies Allergy/AdvReac Type Severity Reaction Status Date / Time Penicillins Allergy Intermediate Rash Verified 11/12/24 21:59 acetaminophen (From [facility] Adv[facility]ac Intermediate Dizziness Verified 11/12/24 21:59 with Codeine) codeine (From [facility] with AdvReac Intermediate Dizziness Verified 11/12/24 21:59 Codeine) Review of Systems Review of Systems: As reviewed above in HPI Exam Narrative: GENERAL: [Well-appearing, well-nourished, and in no acute distress.] HEAD: [Normocephalic, atraumatic.] EYES: [PERRLA and EOMI.] ENT: Nares clear, no rhinorrhea or epistaxis. Mucous membranes moist. NECK: Supple. CHEST: [Clear to auscultation. No respiratory distress.] HEART: [Regular rate and rhythm]. No murmur heard. [Normal peripheral pulses.] ABDOMEN: [Soft, nondistended], [nontender], [No rigidity or guarding] EXTREMITIES: Left thumb dislocation obvious without any bleeding or open wound. Good range of motion of the interphalangeal joint and remaining digits. Good range of motion of the wrist without any tenderness over the bony prominences aside from the MCP joint of the left thumb. No midline back pain, some minor paraspinal muscle pain over the left and right side. SKIN: Warm, dry, no rash. NEURO: [No focal deficits]. Alert and oriented [x3.] PSYCH: [Normal mood and affect.] Course Vital Signs Vital signs: Vital Signs Temperature 36.5 C 11/12/24 22:24 Pulse Rate 82 11/12/24 22:24 Respiratory Rate 16 11/12/24 22:24 Blood Pressure 138/76 11/12/24 22:24 Pulse Oximetry 98 11/12/24 22:24 Oxygen Delivery Room Air 11/12/24 22:24 Temperature 36.5 C 11/12/24 22:24 Pulse Rate 82 11/12/24 22:24 Respiratory Rate 16 11/12/24 22:24 Blood Pressure 138/76 11/12/24 22:24 Pulse Oximetry 98 11/12/24 22:24 Oxygen Delivery Room Air 11/12/24 22:24 Procedures Orthopedic Joint Reduction Joint #1: Orthopedic Joint Reduction Date: 11/13/24 Orthopedic Joint Reduction Time: 05:45 Time Out Performed: Yes Side: left Joint Reduction Location: finger Analgesia: nerve block Pre-Procedure Neuro Vascular Exam: normal Local Anesthesia: lidocaine 2% Amount of anesthesic used (mL): 5 Technique used: traction/counter-traction and direct manipulation Post-reduction neuro exam: intact Post-reduction vascular: intact Post Reduction X-Ray Obtained: Yes Post Reduction X-Ray Results: reduced Splint Applied: Yes Patient Tolerated Procedure: well and no complications Orthopedic Splinting/Casting Injury #1: Splinting/Casting Date: 11/13/24 Splinting/Casting Time: 05:46 Side: left Upper Extremity Immobilizer: thumb spica Splint: customized in ED Pre-Procedure Neuro Vascular Exam: normal Post-Procedure Neuro Vascular Exam: normal MDM - Fall MDM Narrative Medical decision making narrative: 59-year-old female presenting after mechanical fall with obvious injury to her left upper extremity. She states she also may have injured her back but she has good range of motion is ambulatory. She has a left thumb that is obviously dislocated. She was provided Toradol for analgesia and lidocaine was injected to anesthetize the thumb with a digital nerve block prior to attempted relocation. X-rays reveal a dislocation of the 1st carpometacarpal joint. Lumbar and spine x-rays were negative for any acute process. After several attempts of manual relocation and was able to successfully reduce patient's thumb an x-ray was obtained afterwards that shows successful reduction of the 1st metacarpophalangeal joint without any fracture. She was placed into a thumb spica splint and felt significant improvement her pain. She has good distal neuro vasculature and remained with good pulses. Patient discharged home with orthopedics follow-up. Medical Records Attestation: I reviewed the patient's medical records. Imaging Data Attestation: I personally reviewed and interpreted this imaging study as follows: My impression: Impressions Hand X-Ray 11/12/24 23:06 IMPRESSION: Dislocation of the first carpometacarpal joint. Lumbar Spine X-Ray 11/12/24 23:11 IMPRESSION: No acute osseous abnormality lumbar spine. Multilevel degenerative disc disease. Thoracic Spine X-Ray 11/12/24 23:13 IMPRESSION: No acute osseous abnormality of the thoracic spine. Hand X-Ray 11/13/24 06:41 IMPRESSION: 1. Reduction to normal alignment of the previously described first metacarpophalangeal joint. No fracture. Discharge Plan Discharge Clinical Impression: Closed dislocation of left thumb, Fall Patient Disposition: Home Condition: Stable Instructions: Antibiotic Form, Splint Care (ED), Finger Dislocation (ED) Additional Instructions: Follow-up with the provided stars specialist. Take Tylenol and ibuprofen around the clock for pain control. Return with any emergent concerns. Maintain the splint for comfort and to ensure stability of the joint. Patient Language: Bahraini Prescriptions: New ibuprofen 800 mg tablet 800 mg PO TID PRN (Reason: pain) Qty: 30 0RF Follow-up/Referrals: Amber Downey MD [Physician] - 1 Week (Dislocation of the first carpometacarpal joint.) James,Westley Deshpande MD [Primary Care Provider] - Remi Dias MD [Physician] - 1 Week (Dislocation of the first carpometacarpal joint.) Time of Disposition: :17
[2024-11-13 07:28] VITALS: BP 157/75; PULSE 83; RESP 16; TEMP 37.1; O2SAT 97
== END 2024-11-13 06:39 | disposition home or self-care (01) ==
PROVIDERS: Emergency Provider Student in an Organized Health Care Education/Training Program; PCP Internal Medicine
DX: S63.105A Unspecified dislocation of left thumb, initial encounter (principal); W18.30XA Fall on same level, unspecified, initial encounter
CPT/HCPCS: 26605; 72072; 72100; 73130; 96372; 99285; J1885; J2003